=== PATIENT | female | born 1995 | race American Indian/Alaskan Native ===

== ENCOUNTER 2018-06-06 16:08 | Inpatient (IN) | payer OTHER ==
[2018-06-06 16:18] VITALS: BMI 35.5
[2018-06-06] MEDS ORDERED: Sodium Chloride 0.9% 1,000 ML IV STA (16:36)
--- NOTE | 2018-06-06 18:06 | US ---
Date of service: 06/06/2018 PROCEDURE: Ultrasound of the Kidneys HISTORY: b/l flank pain h/o renal stone COMPARISON: None available. TECHNIQUE: Sonogram of the kidneys. FINDINGS: RIGHT KIDNEY: Measures: 10.4 x 4.5 x 6.0 cm. No obstructing calculus, hydronephrosis, or renal cyst identified. LEFT KIDNEY: Measures: 11.2 x 5.1 x 5.4 cm. No obstructing calculus, hydronephrosis, or renal cyst identified. OTHER FINDINGS: None. IMPRESSION: Unremarkable renal sonogram.
--- NOTE | 2018-06-06 18:15 | US ---
Date of service: 06/06/2018 Indication: /abdominal pain Comparison: None available Technique: Transvaginal pelvic ultrasound. Findings: The uterus measures approximately 9.6 x 4.9 x 6.8 cm. Anteverted. Cervix length measures approximately 5.3 cm. There is a single intrauterine fetus present. 3 mm yolk sac. The gestational sac measures 2.8 cm and is compatible with a gestational age of 7 weeks 5 days. The crown-rump length measures 1.2 cm and is compatible with a gestational age of 7 weeks 3 days. There is heart motion which measured 153 BPM. The right ovary measures 3.6 x 2.4 x 3.1 and contains 2.1 x 1.6 x 1.7 cm cyst. The left ovary is not visualized. Small pelvic free fluid. Impression: Live single intrauterine with estimated gestational age 7 weeks 3 days by crown-rump length calculation. heart rate 153 bpm. Advise an anomaly screen at 16-18 weeks gestational age 2.1 cm right ovarian cyst. The left ovary is not visualized. Small pelvic free fluid.
[2018-06-06 18:36] LABS: BASO # 0.01 K/mm3 (0.0-2.0); BASO % 0.1 % (0.0-3.0); EOS % 0.3 % (1.5-5.0); GRAN # 9.14 (1.4-6.5); GRAN % 86.2 % (50.0-68.0); LYMPH % 9.2 % (22.0-35.0); MEAN CELL VOLUME 81.8 fl (80.0-105.0); MEAN CORPUSCULAR HGB CONC 33.1 g/dl (31.0-37.0); MEAN PLATELET VOLUME 10.4 fl (7.0-11.0); MONO # 0.4 (0.1-0.6); MONO % 4.2 % (1.0-6.0); RBC 4.44 10^6/uL (3.5-6.1); RED CELL DISTRIBUTION WIDTH 12.7 % (11.5-14.5); URINE BILIRUBIN SMALL (NEGATIVE); URINE BLOOD NEGATIVE (NEGATIVE); URINE GLUCOSE (UA) NEGATIVE (NEGATIVE); URINE LEUKOCYTE ESTERASE NEGATIVE Leu/uL (NEGATIVE); URINE PROTEIN NEGATIVE mg/dL (<30 mg/dL); URINE UROBILINOGEN 0.2 E.U./dL (<1 E.U./dL); WHITE BLOOD COUNT 10.6 10^3/uL (4.5-11.0)
--- NOTE | 2018-06-06 18:37 | ED PDOC ---
Arrival/HPI - General Historian: Patient - History of Present Illness Narrative History of Present Illness (Text): 06/06/18 18:32 22yo female with no significant pmhx bib EMS with complaint of epigastric abdominal pain that radiates to her back with associated nausea and vomiting since earlier today. Patient reports intermittent history of these symptoms now for a year. states she was told she have kidney stone. she notes that her LMP was in March and she is currently . States she have not seen OB,. she denies diarrhea, constipation, dysuria, hematuria, vaginal bleeding, chest pain, SOB, diaphoresis, fever, chills, sick contact, travel, any other complaint. <Mckenzie Jain A - Last Filed: 06/07/18 02:09> <Enoch King Y - Last Filed: 06/07/18 11:56> - General Chief Complaint: Back Pain Time Seen by Provider: 06/06/18 16:15 Past Medical History - Provider Review Nursing Documentation Reviewed: Yes - Infectious Disease Hx of Infectious Diseases: None - Psychiatric Hx Substance Use: No <Mckenzie Jain A - Last Filed: 06/07/18 02:09> Family/Social History - Physician Review Nursing Documentation Reviewed: Yes Family/Social History: Unknown Family HX Smoking Status: Light Smoker < 10 Cigarettes Daily Hx Alcohol Use: No Hx Substance Use: No <Mckenzie Jain A - Last Filed: 06/07/18 02:09> Allergies/Home Meds <Mckenzie Jain A - Last Filed: 06/07/18 02:09> <Enoch King Y - Last Filed: 06/07/18 11:56> Allergies/Adverse Reactions: Allergies No Known Allergies Allergy (Verified 06/06/18 16:32) Home Medications: Home Meds Medication Instructions Recorded Confirmed RX: No Known Home Med 06/06/18 06/06/18 Review of Systems - Physician Review All systems were reviewed & negative as marked: Yes - Review of Systems Constitutional: Normal Eyes: Normal ENT: Normal Respiratory: Normal Cardiovascular: Normal Gastrointestinal: Abdominal Pain, Nausea, Vomiting. absent: Constipation, Diarrhea, Hematochezia, Hematemesis Genitourinary Female: Normal Musculoskeletal: Normal Skin: Normal Neurological: Normal Endocrine: Normal Hemo/Lymphatic: Normal Psychiatric: Normal <Mckenzie Jain A - Last Filed: 06/07/18 02:09> Physical Exam Vital Signs Reviewed: Yes Vital Signs Temp Pulse Resp BP Pulse Ox 06/06/18 16:30 97.7 F 57 L 18 131/77 100 Temperature: Afebrile Blood Pressure: Normal Pulse: Regular Respiratory Rate: Normal Appearance: Positive for: Well-Appearing, Non-Toxic, Comfortable Pain Distress: None Mental Status: Positive for: Alert and Oriented X 3 - Systems Exam Head: Present: Atraumatic, Normocephalic Pupils: Present: PERRL Extroacular Muscles: Present: EOMI Conjunctiva: Present: Normal Mouth: Present: Moist Mucous Membranes Neck: Present: Normal Range of Motion Respiratory/Chest: Present: Clear to Auscultation, Good Air Exchange. No: Respiratory Distress, Accessory Muscle Use Cardiovascular: Present: Regular Rate and Rhythm, Normal S1, S2. No: Murmurs Abdomen: Present: Tenderness (Epigastric tenderness), Normal Bowel Sounds. No: Distention, Peritoneal Signs, Rebound, Guarding, McBurney's Point Tender, Rovsing's Sign Present Back: Present: Normal Inspection Upper Extremity: Present: Normal Inspection. No: Cyanosis, Edema Lower Extremity: Present: Normal Inspection. No: Edema Neurological: Present: GCS=15, CN II-XII Intact, Speech Normal Skin: Present: Warm, Dry, Normal Color. No: Rashes Psychiatric: Present: Alert, Oriented x 3, Normal Insight, Normal Concentration <Diru,Happiness A - Last Filed: 06/07/18 02:09> Vital Signs Temp Pulse Resp BP Pulse Ox 06/07/18 00:52 62 18 124/69 99 06/06/18 16:30 97.7 F 57 L 18 131/77 100 <Enoch King Y - Last Filed: 06/07/18 11:56> Medical Decision Making ED Course and Treatment: 06/06/18 18:32 PT in ED for epigastric abdominal cohen that radiates to her back Labs Transvaginal/renal/Gallbladder US Ua 1L NS, Reglan,Tylenol Lab was [place]. [place] [address].00 was noted. Elevated LFT's was also noted Impression: Live single intrauterine with estimated gestational age 7 weeks 3 days by crown-rump length calculation. heart rate 153 bpm. Advise an anomaly screen at 16-18 weeks gestational age 2.1 cm right ovarian cyst. The left ovary is not visualized. Small pelvic free fluid. 06/06/18 22:14 US Gallbladder and Pancreas: Liver Measures 13.7 x 9.02 cm. Increased echogenicity of the liver parenchyma. No mass. No intrahepatic bile duct dilatation. Gallbladder Gallstones. Gallbladder wall thickness measures 0.25 cm. Common bile duct Measures 6.6 mm. No stones. No dilatation. Pancreas Not visualized. Right kidney Measures 9.4 x 5.08 x 5.12 cm in length. Normal echogenicity. No calculus, mass, or hydronephrosis. Aorta No aneurysmal dilatation. IVC Unremarkable. Other Findings None. Impression 1. Fatty liver. 2. Cholelithiasis. Electronically signed on Jun 06, 2018 9:40:33 PM EST by: Darrian Robbins M.D., EFREN Certified By [facility] Fellowship Trained MRI and CT Specialist Pt will be admitted for acute pancreatitis/cholelithiasis Result and plan was DW the pt and she agreed Case was DW Dr. Garcia and he accepted the pt for admission. - RAD Interpretation Radiology Orders: 06/06/18 16:37 OB TRANSVAGINAL [US] Stat RENAL [US] Stat - Medication Orders Current Medication Orders: Discontinued Medications Famotidine (Pepcid) 20 mg IVP STAT STA Stop: 06/06/18 16:37 Last Admin: 06/06/18 18:24 Dose: 20 mg IVP Administration Document 06/06/18 18:24 OCS (Rec: 06/06/18 18:24 [facility] Charges for Administration # of IVP Administrations 1 Sodium Chloride (Sodium Chloride 0.9%) 1,000 mls @ 1,000 mls/hr IV .Q1H STA Stop: 06/06/18 17:35 Last Admin: 06/06/18 18:24 Dose: 1,000 mls/hr eMAR Start Stop Document 06/06/18 18:24 OCS (Rec: 06/06/18 18:24 [facility] [place] Intravenous Solution Start Date 06/06/18 Start Time 18:24 End Date 06/06/18 End time 19:24 Total Infusion Time 60 Metoclopramide HCl (Reglan) 10 mg IVP STAT STA Stop: 06/06/18 16:37 Last Admin: 06/06/18 18:24 Dose: 10 mg IVP Administration Document 06/06/18 18:24 OCS (Rec: 06/06/18 18:24 [facility] [id number] Charges for Administration # of IVP Administrations 1 <Mckenzie Jain - Last Filed: 06/07/18 02:09> - Lab Interpretations Lab Results: 06/06/18 18:00 06/06/18 18:00 Lab Results 06/06/18 19:00: PT 12.1, INR 1.06, APTT 23.5 L 06/06/18 18:00: Sodium 135, Potassium 4.0, Chloride 105, Carbon Dioxide 20 L, Anion Gap 14, BUN 6 L, Creatinine 0.5 L, Est GFR ( Amer) > 60, Est GFR (Non-Af Amer) > 60, Random Glucose 149 H, Calcium 9.8, Magnesium 1.9, Total Bilirubin 1.9 H, AST 674 H, ALT 363 H, Alkaline Phosphatase 170 H, Total Protein 8.1, Albumin 4.6, Globulin 3.5, Albumin/Globulin Ratio 1.3, Lipase 00670 H 06/06/18 18:00: WBC 10.6, RBC 4.44, Hgb 12.0, Hct 36.3, MCV 81.8, MCH 27.0, MCHC 33.1, RDW 12.7, Plt Count 299, MPV 10.4, Gran % 86.2 H, Lymph % (Auto) 9.2 L, [place] % (Auto) 4.2, Eos % (Auto) 0.3 L, Baso % (Auto) 0.1, Gran # 9.14 H, Lymph # (Auto) 1.0 L, [place] # (Auto) 0.4, Eos # (Auto) 0.0, Baso # (Auto) 0.01 06/06/18 18:00: Urine Color Yellow, Urine Appearance Clear, Urine pH 6.0, Ur Specific [place] 1.015, Urine Protein Negative, Urine Glucose (UA) Negative, Urine Ketones Negative, Urine Blood Negative, Urine Nitrate Negative, Urine Bilirubin Small H, Urine Urobilinogen 0.2, Ur Leukocyte Esterase Negative - RAD Interpretation Radiology Orders: 06/06/18 16:37 OB TRANSVAGINAL [US] Stat RENAL [US] Stat 06/06/18 19:52 GALLBLADDER & PANCREAS [US] Stat - Medication Orders Current Medication Orders: Acetaminophen (Tylenol 325mg Tab) 650 mg PO Q6H PRN PRN Reason: Pain, moderate (4-7) Sodium Chloride (Sodium Chloride 0.9%) 1,000 mls @ 100 mls/hr IV .Q10H SAVANNA Last Admin: 06/06/18 21:25 Dose: 100 mls/hr eMAR Start Stop Document 06/06/18 21:25 AD (Rec: 06/06/18 21:25 AD [facility] [place]) Intravenous Solution Start Date 06/06/18 Start Time 21:25 Morphine Sulfate (Morphine) 2 mg IVP Q4H PRN PRN Reason: Pain, severe (8-10) Last Admin: 06/07/18 11:39 Dose: 2 mg MAR Pain Assessment Document 06/07/18 11:39 AJ (Rec: 06/07/18 11:39 AJ [id number]) Pain Reassessment Is this a pain reassessment? Yes Sleep Is patient sleeping during reassessment? No Presence of Pain Presence of Pain Yes Pain Scale Used Protocol: PSCALES Pain Scale Used Numeric Description Description Intermittent Intensity of Pain at present 8 IVP Administration Document 06/07/18 11:39 AJ (Rec: 06/07/18 11:39 AJ [id number]) Charges for Administration # of IVP Administrations 1 Discontinued Medications Acetaminophen (Tylenol 325mg Tab) 650 mg PO STAT STA Stop: 06/06/18 18:55 Last Admin: 06/06/18 20:19 Dose: 650 mg Famotidine (Pepcid) 20 mg IVP STAT STA Stop: 06/06/18 16:37 Last Admin: 06/06/18 18:24 Dose: 20 mg IVP Administration Document 06/06/18 18:24 OCS (Rec: 06/06/18 18:24 OCS [facility] [place]) Charges for Administration # of IVP Administrations 1 Sodium Chloride (Sodium Chloride 0.9%) 1,000 mls @ 1,000 mls/hr IV .Q1H STA Stop: 06/06/18 17:35 Last Admin: 06/06/18 18:24 Dose: 1,000 mls/hr eMAR Start Stop Document 06/06/18 18:24 OCS (Rec: 06/06/18 18:24 OCS [facility]-21) Intravenous Solution Start Date 06/06/18 Start Time 18:24 End Date 06/06/18 End time 19:24 Total Infusion Time 60 Metoclopramide HCl (Reglan) 10 mg IVP STAT STA Stop: 06/06/18 16:37 Last Admin: 06/06/18 18:24 Dose: 10 mg IVP Administration Document 06/06/18 18:24 OCS (Rec: 06/06/18 18:24 OCS [facility]-21) Charges for Administration # of IVP Administrations 1 Promethazine HCl (Phenergan Syrup) 12.5 mg PO Q4H PRN PRN Reason: Nausea/Vomiting Last Admin: 06/07/18 04:28 Dose: 12.5 mg <Enoch King - Last Filed: 06/07/18 11:56> Disposition/Present on Arrival - Present on Arrival Any Indicators Present on Arrival: No History of DVT/PE: No History of Uncontrolled Diabetes: No Urinary Catheter: No History of Decub. Ulcer: No History Surgical Site Infection Following: None - Disposition Have Diagnosis and Disposition been Completed?: Yes Disposition Time: 19:50 Patient Plan: Admission <Mckenzie Jain - Last Filed: 06/07/18 02:09> <Enoch King - Last Filed: 06/07/18 11:56> - Disposition Diagnosis: Acute pancreatitis, , Cholelithiasis, Elevated LFTs Disposition: HOSPITALIZED Patient Problems: Current Active Problems Problem Status Onset Acute pancreatitis Acute Cholelithiasis Acute Elevated LFTs Acute Acute Condition: FAIR
[2018-06-06 18:42] LABS: URINE APPEARANCE CLEAR (CLEAR); URINE COLOR YELLOW (YELLOW)
[2018-06-06 18:55] LABS: ALB/GLOB RATIO 1.3 (1.1-1.8); ALBUMIN 4.6 g/dL (3.0-4.8); BLOOD UREA NITROGEN 6 mg/dL (7-21); CALCIUM 9.8 mg/dL (8.4-10.5); GFR NON-AFRICAN AMERICAN > 60
[2018-06-06 19:22] LABS: ALT/SGPT 363 U/L (7-56); AST/SGOT 674 U/L (14-36); LIPASE 15549 U/L (23-300)
[2018-06-06 19:23] LABS: INR 1.06; PARTIAL THROMBOPLASTIN TIME 23.5 Seconds (25.1-36.5); PROTHROMBIN TIME 12.1 SECONDS (9.4-12.5)
[2018-06-06] MEDS: Sodium Chloride 0.9% 1,000 ML IV SCH (21:25)
--- NOTE | 2018-06-06 23:40 | CP.PCM.HP ---
<Justine Tam - Last Filed: 06/07/18 00:06> History of Present Illness - History of Present Illness History of Present Illness: Justine Tam, PGY1 Hospital H&P This is a 22 year old female with no PMH presenting to the hospital for one year of intermittent abdominal pain. Pain is located in the B/L lower abdominal area, radiates to the right flank area, rated 10/10 at worst, sharp and denies any relieving or exacerbating factors. She states she has been having increasing abdominal pain as well as nausea, several episodes of non bloody vomiting and subjective fever over the last few days which prompted her to come to the hospital. Last bowel movement was this morning. She denies any history of pancreatitis, gallbladder disease, GERD and kidney problems. She admits to drinking alcohol but is uncooperative upon further drinking history. She denies CP, SOB, headaches, chills, diarrhea, constipation, urinary complaints, numbness, tingling, swelling, recent travel, sickness, trauma and lifestyle changes including diet and weight gain/loss. 12 point ROS noted here, otherwise unremarkable. In ED, urine was positive and transvaginal US showed single intrauterine age 7 weeks with 2.1cm right ovarian cyst and small amount of pelvic free fluid. Patient states this is her fourth . She has one previous vaginal delivery and 2 previous abortions. PMD: Dr. Chan Meds: none PMH: denies SH: denies smoking drug use, smoked 2-5 ciggs/day for 5 years. Patient admits to drinking history but refuses to quantify amount Sx: denies surgeries FH: DM All: NKDA Present on Admission - Present on Admission Any Indicators Present on Admission: No Past Patient History - Infectious Disease Hx of Infectious Diseases: None - Past Social History Smoking Status: Light Smoker < 10 Cigarettes Daily - PSYCHIATRIC Hx Substance Use: No - SURGICAL HISTORY Hx Surgeries: No Meds Allergies/Adverse Reactions: Allergies Allergy/AdvReac Type Severity Reaction Status Date / Time No Known Allergies Allergy Verified 06/06/18 16:32 Physical Exam - Constitutional Appears: No Acute Distress - Head Exam Head Exam: ATRAUMATIC, NORMAL INSPECTION - Eye Exam Eye Exam: EOMI Pupil Exam: PERRL - ENT Exam ENT Exam: Mucous Membranes Moist - Neck Exam Neck exam: Positive for: Normal Inspection - Respiratory Exam Respiratory Exam: Clear to Auscultation Bilateral. absent: Accessory Muscle Use, Wheezes, Respiratory Distress - Cardiovascular Exam Cardiovascular Exam: REGULAR RHYTHM, +S1, +S2 - GI/Abdominal Exam GI & Abdominal Exam: Normal Bowel Sounds, Soft. absent: Firm, Guarding Additional comments: epigastric abdominal pain appreciated with light palpation. Rovsing and obturator signs are negative - Extremities Exam Extremities exam: Positive for: normal inspection, pedal pulses present. Negative for: calf tenderness - Back Exam Back exam: NORMAL INSPECTION. absent: CVA tenderness (L), CVA tenderness (R) - Neurological Exam Neurological exam: Alert, Oriented x3 - Skin Skin Exam: Normal Color, Warm Results - Vital Signs Recent Vital Signs: Last Vital Signs Temp 97.7 F 06/06/18 16:30 Pulse 57 L 06/06/18 16:30 Resp 18 06/06/18 16:30 BP 131/77 06/06/18 16:30 Pulse Ox 100 06/06/18 16:30 - Labs Result Diagrams: 06/06/18 18:00 06/06/18 18:00 Labs: Laboratory Results - last 24 hr 06/06/18 06/06/18 06/06/18 18:00 18:00 18:00 WBC 10.6 RBC 4.44 Hgb 12.0 Hct 36.3 MCV 81.8 MCH 27.0 MCHC 33.1 RDW 12.7 Plt Count 299 MPV 10.4 Gran % 86.2 H Lymph % (Auto) 9.2 L [place] % (Auto) 4.2 Eos % (Auto) 0.3 L Baso % (Auto) 0.1 Gran # 9.14 H Lymph # (Auto) 1.0 L [place] # (Auto) 0.4 Eos # (Auto) 0.0 Baso # (Auto) 0.01 PT INR APTT Sodium 135 Potassium 4.0 Chloride 105 Carbon Dioxide 20 L Anion Gap 14 BUN 6 L Creatinine 0.5 L Est GFR ( Amer) > 60 Est GFR (Non-Af Amer) > 60 Random Glucose 149 H Calcium 9.8 Magnesium 1.9 Total Bilirubin 1.9 H AST 674 H ALT 363 H Alkaline Phosphatase 170 H Total Protein 8.1 Albumin 4.6 Globulin 3.5 Albumin/Globulin Ratio 1.3 Lipase 49629 H Urine Color Yellow Urine Appearance Clear Urine pH 6.0 Ur Specific [place] 1.015 Urine Protein Negative Urine Glucose (UA) Negative Urine Ketones Negative Urine Blood Negative Urine Nitrate Negative Urine Bilirubin Small H Urine Urobilinogen 0.2 Ur Leukocyte Esterase Negative 06/06/18 19:00 WBC RBC Hgb Hct MCV MCH MCHC RDW Plt Count MPV Gran % Lymph % (Auto) [place] % (Auto) Eos % (Auto) Baso % (Auto) Gran # Lymph # (Auto) [place] # (Auto) Eos # (Auto) Baso # (Auto) PT 12.1 INR 1.06 APTT 23.5 L Sodium Potassium Chloride Carbon Dioxide Anion Gap BUN Creatinine Est GFR ( Amer) Est GFR (Non-Af Amer) Random Glucose Calcium Magnesium Total Bilirubin AST ALT Alkaline Phosphatase Total Protein Albumin Globulin Albumin/Globulin Ratio Lipase Urine Color Urine Appearance Urine pH Ur Specific [place] Urine Protein Urine Glucose (UA) Urine Ketones Urine Blood Urine Nitrate Urine Bilirubin Urine Urobilinogen Ur Leukocyte Esterase Assessment & Plan - Assessment and Plan (Free Text) Assessment: This is a 22 year old female with no PMH presenting to the hospital for one year of intermittent abdominal pain. Plan: Abdominal pain -likely 2/2 pancreatitis -lipase elevated 15k -afebrile, no WBC -elevated LFT's, T Bili, alk phos -promethazine 12.5mg q4 for nausea -NS 100 -liquid diet tomorrow -morphine 2mg q4 prn for pain -tylenol prn for fever -Gallbladder US pending -repeat lipase in AM -Transvaginal US showed single intrauterine age 7 weeks with 2.1cm right ovarian cyst and small amount of pelvic free fluid -Renal US was unremarkable -liquid diet for tomorrow -avoid toxic medications PPX with SCD Patient seen and case discussed with attending, Dr. Garcia <Rosana aGrcia - Last Filed: 06/07/18 06:47> Results - Vital Signs Recent Vital Signs: Last Vital Signs Temp 98.5 F 06/07/18 01:20 Pulse 62 06/07/18 01:20 Resp 18 06/07/18 05:22 BP 98/39 L 06/07/18 01:20 Pulse Ox 100 06/07/18 01:20 - Labs Result Diagrams: 06/06/18 18:00 06/06/18 18:00 Labs: Laboratory Results - last 24 hr 06/06/18 06/06/18 06/06/18 18:00 18:00 18:00 WBC 10.6 RBC 4.44 Hgb 12.0 Hct 36.3 MCV 81.8 MCH 27.0 MCHC 33.1 RDW 12.7 Plt Count 299 MPV 10.4 Gran % 86.2 H Lymph % (Auto) 9.2 L [place] % (Auto) 4.2 Eos % (Auto) 0.3 L Baso % (Auto) 0.1 Gran # 9.14 H Lymph # (Auto) 1.0 L [place] # (Auto) 0.4 Eos # (Auto) 0.0 Baso # (Auto) 0.01 PT INR APTT Sodium 135 Potassium 4.0 Chloride 105 Carbon Dioxide 20 L Anion Gap 14 BUN 6 L Creatinine 0.5 L Est GFR ( Amer) > 60 Est GFR (Non-Af Amer) > 60 Random Glucose 149 H Calcium 9.8 Magnesium 1.9 Total Bilirubin 1.9 H AST 674 H ALT 363 H Alkaline Phosphatase 170 H Total Protein 8.1 Albumin 4.6 Globulin 3.5 Albumin/Globulin Ratio 1.3 Lipase 98774 H Urine Color Yellow Urine Appearance Clear Urine pH 6.0 Ur Specific [place] 1.015 Urine Protein Negative Urine Glucose (UA) Negative Urine Ketones Negative Urine Blood Negative Urine Nitrate Negative Urine Bilirubin Small H Urine Urobilinogen 0.2 Ur Leukocyte Esterase Negative 06/06/18 19:00 WBC RBC Hgb Hct MCV MCH MCHC RDW Plt Count MPV Gran % Lymph % (Auto) [place] % (Auto) Eos % (Auto) Baso % (Auto) Gran # Lymph # (Auto) [place] # (Auto) Eos # (Auto) Baso # (Auto) PT 12.1 INR 1.06 APTT 23.5 L Sodium Potassium Chloride Carbon Dioxide Anion Gap BUN Creatinine Est GFR ( Amer) Est GFR (Non-Af Amer) Random Glucose Calcium Magnesium Total Bilirubin AST ALT Alkaline Phosphatase Total Protein Albumin Globulin Albumin/Globulin Ratio Lipase Urine Color Urine Appearance Urine pH Ur Specific [place] Urine Protein Urine Glucose (UA) Urine Ketones Urine Blood Urine Nitrate Urine Bilirubin Urine Urobilinogen Ur Leukocyte Esterase Attending/Attestation - Attestation I have personally seen and examined this patient.: Yes I have fully participated in the care of the patient.: Yes I have reviewed all pertinent clinical information: Yes
[2018-06-06] MEDS ORDERED: Sodium Chloride 0.9% 1,000 ML IV SCH (23:45)
[2018-06-06] MEDS ORDERED: Promethazine 6.25 MG/5 ML CUP PO PRN (23:50)
[2018-06-07] MEDS: Morphine 2 mg/ml ISec IVP PRN ×5 (00:28→21:18)
[2018-06-07 07:15] LABS: BASO # 0.01 K/mm3 (0.0-2.0); BASO % 0.1 % (0.0-3.0); EOS % 0.1 % (1.5-5.0); GRAN # 10.3 (1.4-6.5); GRAN % 83.5 % (50.0-68.0); HEMOGLOBIN 10.3 g/dL (12.0-16.0); LYMPH # 1.4 (1.2-3.4); MEAN CELL VOLUME 80.8 fl (80.0-105.0); MEAN CORPUSCULAR HEMOGLOBIN 25.8 pg (25.0-35.0); MEAN CORPUSCULAR HGB CONC 31.9 g/dl (31.0-37.0); MEAN PLATELET VOLUME 10.3 fl (7.0-11.0); MONO # 0.7 (0.1-0.6); MONO % 5.3 % (1.0-6.0); RED CELL DISTRIBUTION WIDTH 12.8 % (11.5-14.5); WHITE BLOOD COUNT 12.3 10^3/uL (4.5-11.0)
[2018-06-07 07:39] LABS: ALB/GLOB RATIO 1.2 (1.1-1.8); ALBUMIN 3.8 g/dL (3.0-4.8); ALT/SGPT 256 U/L (7-56); AST/SGOT 207 U/L (14-36); BLOOD UREA NITROGEN 6 mg/dL (7-21); CALCIUM 8.8 mg/dL (8.4-10.5); GFR NON-AFRICAN AMERICAN > 60
[2018-06-07 08:21] LABS: HDL CHOLESTEROL 60 mg/dL (29-60)
[2018-06-07 08:32] LABS: LDL CHOLESTEROL 76 mg/dL (0-129)
--- NOTE | 2018-06-07 10:41 | US ---
Date of service: 06/06/2018 HISTORY: RUQ pain COMPARISON: None. TECHNIQUE: Grayscale imaging was performed. FINDINGS: LIVER: Measures 13.7 cm in length. There is diffuse increased echogenicity of the liver parenchyma with coarse echotexture. No mass. No intrahepatic bile duct dilatation. GALLBLADDER: There are multiple gallstones and echogenic biliary sludge. No wall thickening, pericholecystic fluid or positive sonographic Boudreaux's sign. COMMON BILE DUCT: Measures 6.6 mm. No stones. No dilatation. PANCREAS: Obscured by bowel gas. RIGHT KIDNEY: Measures 9.4 cm in length. Normal echogenicity. No calculus, mass, or hydronephrosis. AORTA: No aneurysmal dilatation. IVC: Unremarkable. OTHER FINDINGS: None . IMPRESSION: Diffuse increased echogenicity in the liver may reflect hepatic steatosis however parenchymal infectious/ inflammatory etiologies cannot be entirely excluded. Clinical and laboratory correlation is advised. Cholelithiasis. A preliminary report was provided by [employer].
[2018-06-07 16:35] LABS: BARBITURATES, UR NEGATIVE (NEGATIVE); BENZODIAZEPINES, UR NEGATIVE (NEGATIVE); OPIATES, UR POSITIVE (NEGATIVE); PHENCYCLIDINE, UR NEGATIVE (NEGATIVE)
[2018-06-07 22:09] VITALS: RESP 20
[2018-06-08] MEDS: Morphine 2 mg/ml ISec IVP PRN (05:08)
[2018-06-08] MEDS: Sodium Chloride 0.9% 1,000 ML IV SCH (05:10)
[2018-06-08 06:57] LABS: BASO # 0.02 K/mm3 (0.0-2.0); BASO % 0.3 % (0.0-3.0); EOS # 0.3 (0.0-0.7); EOS % 3.6 % (1.5-5.0); GRAN # 4.07 (1.4-6.5); GRAN % 55.7 % (50.0-68.0); LYMPH # 2.2 (1.2-3.4); LYMPH % 30.4 % (22.0-35.0); MEAN CELL VOLUME 82.5 fl (80.0-105.0); MEAN CORPUSCULAR HEMOGLOBIN 26.2 pg (25.0-35.0); MEAN CORPUSCULAR HGB CONC 31.7 g/dl (31.0-37.0); MEAN PLATELET VOLUME 10.3 fl (7.0-11.0); MONO # 0.7 (0.1-0.6); RBC 3.82 10^6/uL (3.5-6.1); WHITE BLOOD COUNT 7.3 10^3/uL (4.5-11.0)
[2018-06-08 07:23] LABS: ALB/GLOB RATIO 1.3 (1.1-1.8); ALBUMIN 3.5 g/dL (3.0-4.8); ALT/SGPT 149 U/L (7-56); AST/SGOT 65 U/L (14-36); BLOOD UREA NITROGEN 5 mg/dL (7-21); CALCIUM 8.7 mg/dL (8.4-10.5); GFR NON-AFRICAN AMERICAN > 60; LIPASE 151 U/L (23-300)
[2018-06-08] MEDS ORDERED: Multivitamin With Minerals Tab PO SCH (08:00)
[2018-06-08 08:10] VITALS: TEMP 98.7; O2SAT 97
[2018-06-08 11:08] VITALS: BP 102/60; PULSE 58
--- NOTE | 2018-06-08 14:44 | CP.PCM.DIS ---
Provider - Provider Date of Admission: 06/06/18 19:54 Attending physician: Tulio Fajardo MD Primary care physician: Evan Pandya MD Consults: 06/08/18 07:30 Consult [Physician Consult] Routine Comment: Consulting Provider: Mil Crowell V Consulting Physician: Mil Crowell V Reason for Consult: pancreatitis, Time Spent in preparation of Discharge (in minutes): 45 Hospital Course - Lab Results Lab Results: Most Recent Lab Values WBC 7.3 10^3/uL (4.5-11.0) D 06/08/18 06:20 RBC 3.82 10^6/uL (3.5-6.1) 06/08/18 06:20 Hgb 10.0 g/dL (12.0-16.0) L 06/08/18 06:20 Hct 31.5 % (36.0-48.0) L 06/08/18 06:20 MCV 82.5 fl (80.0-105.0) 06/08/18 06:20 MCH 26.2 pg (25.0-35.0) 06/08/18 06:20 MCHC 31.7 g/dl (31.0-37.0) 06/08/18 06:20 RDW 13.0 % (11.5-14.5) 06/08/18 06:20 Plt Count 267 10^3/uL (120.0-450.0) 06/08/18 06:20 MPV 10.3 fl (7.0-11.0) 06/08/18 06:20 Gran % 55.7 % (50.0-68.0) 06/08/18 06:20 Lymph % (Auto) 30.4 % (22.0-35.0) 06/08/18 06:20 [place] % (Auto) 10.0 % (1.0-6.0) H 06/08/18 06:20 Eos % (Auto) 3.6 % (1.5-5.0) 06/08/18 06:20 Baso % (Auto) 0.3 % (0.0-3.0) 06/08/18 06:20 Gran # 4.07 (1.4-6.5) 06/08/18 06:20 Lymph # (Auto) 2.2 (1.2-3.4) 06/08/18 06:20 [place] # (Auto) 0.7 (0.1-0.6) H 06/08/18 06:20 Eos # (Auto) 0.3 (0.0-0.7) 06/08/18 06:20 Baso # (Auto) 0.02 K/mm3 (0.0-2.0) 06/08/18 06:20 PT 12.1 SECONDS (9.4-12.5) 06/06/18 19:00 INR 1.06 06/06/18 19:00 APTT 23.5 Seconds (25.1-36.5) L 06/06/18 19:00 Sodium 136 mmol/L (132-148) 06/08/18 06:20 Potassium 3.8 mmol/L (3.6-5.0) 06/08/18 06:20 Chloride 105 mmol/L (98-107) 06/08/18 06:20 Carbon Dioxide 26 mmol/L (21-33) 06/08/18 06:20 Anion Gap 9 (10-20) L 06/08/18 06:20 BUN 5 mg/dL (7-21) L 06/08/18 06:20 Creatinine 0.6 mg/dl (0.7-1.2) L 06/08/18 06:20 Est GFR ( Amer) > 60 06/08/18 06:20 Est GFR (Non-Af Amer) > 60 06/08/18 06:20 Random Glucose 88 mg/dL (70-110) 06/08/18 06:20 Calcium 8.7 mg/dL (8.4-10.5) 06/08/18 06:20 Phosphorus 3.9 mg/dL (2.5-4.5) 06/07/18 06:45 Magnesium 1.8 mg/dL (1.7-2.2) 06/07/18 06:45 Total Bilirubin 0.3 mg/dL (0.2-1.3) 06/08/18 06:20 AST 65 U/L (14-36) H D 06/08/18 06:20 ALT 149 U/L (7-56) H 06/08/18 06:20 Alkaline Phosphatase 101 U/L (38-126) 06/08/18 06:20 Total Protein 6.3 g/dL (5.8-8.3) 06/08/18 06:20 Albumin 3.5 g/dL (3.0-4.8) 06/08/18 06:20 Globulin 2.8 gm/dL 06/08/18 06:20 Albumin/Globulin Ratio 1.3 (1.1-1.8) 06/08/18 06:20 Triglycerides 72 mg/dL (35-160) 06/07/18 06:30 Cholesterol 152 mg/dL (130-200) 06/07/18 06:30 LDL Cholesterol Direct 76 mg/dL (0-129) 06/07/18 06:30 HDL Cholesterol 60 mg/dL (29-60) 06/07/18 06:30 Lipase 151 U/L (23-300) 06/08/18 06:20 Urine Color Yellow (YELLOW) 06/06/18 18:00 Urine Appearance Clear (CLEAR) 06/06/18 18:00 Urine pH 6.0 (4.7-8.0) 06/06/18 18:00 Ur Specific [place] 1.015 (1.005-1.035) 06/06/18 18:00 Urine Protein Negative mg/dL (<30 mg/dL) 06/06/18 18:00 Urine Glucose (UA) Negative mg/dL (NEGATIVE) 06/06/18 18:00 Urine Ketones Negative mg/dL (NEGATIVE) 06/06/18 18:00 Urine Blood Negative (NEGATIVE) 06/06/18 18:00 Urine Nitrate Negative (NEGATIVE) 06/06/18 18:00 Urine Bilirubin Small (NEGATIVE) H 06/06/18 18:00 Urine Urobilinogen 0.2 E.U./dL (<1 E.U./dL) 06/06/18 18:00 Ur Leukocyte Esterase Negative [place]/uL (NEGATIVE) 06/06/18 18:00 Urine Opiates Screen Positive (NEGATIVE) H 06/07/18 16:01 Urine Methadone Screen Negative (NEGATIVE) 06/07/18 16:01 Ur Barbiturates Screen Negative (NEGATIVE) 06/07/18 16:01 Ur Phencyclidine Scrn Negative (NEGATIVE) 06/07/18 16:01 Ur Amphetamines Screen Negative (NEGATIVE) 06/07/18 16:01 U Benzodiazepines Scrn Negative (NEGATIVE) 06/07/18 16:01 U Oth Cocaine Metabols Negative (NEGATIVE) 06/07/18 16:01 U Cannabinoids Screen Positive (NEGATIVE) H 06/07/18 16:01 Alcohol, Quantitative < 10 mg/dL (0-10) 06/07/18 06:30 Discharge Exam - Head Exam Head Exam: ATRAUMATIC, NORMAL INSPECTION Discharge Plan - Discharge Medications Prescriptions: Famotidine [Pepcid] 40 mg PO DAILY 30 Days #30 tablet Vit No.126/Iron/Folic [Classic Tablet] 1 each PO DAILY #30 tablet - Follow Up Plan Condition: FAIR Disposition: HOME/ ROUTINE Instructions: Pancreatitis (DC), Gallstones (DC), Flu Vaccine Additional Instructions: Please follow up with primary medical doctor in 3-5 days for repeat blood work. 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 Please avoid fatty foods and please refrain from alcohol and drug use. If your symptoms worsen, please go to the nearest emergency department. Referrals: Evan Pandya MD [Primary Care Provider] -
--- NOTE | 2018-06-08 15:10 | CP.PCM.CON ---
<Wu Simon - Last Filed: 06/08/18 15:10> History of Present Illness - History of Present Illness History of Present Illness: PGY6 GI Fellow Consult Note - LATE ENTRY Patient is a 22yo female with PMHx significant for current intrauterine (~7 weeks) who presented to the ED with abdominal pain. States pain began suddenly, waking her from sleep last night and was 10/10 sharp, stabbing in nature. Though pain began in the lower abdomen, it soon moved to the RUQ and epigastric area where it has remained. She developed nausea, vomiting and decided to come to the ED for further evaluation. Patient is aware of intrauterine but admits to EtOH use up to two weeks prior to admission. Vehemently denies any EtOH just prior to arrival. Denies any prior episodes of pancreatitis. At this time, patient is comfortable and has eaten breakfast without issue. 12 system ROS performed and negative except where stated PMHx: None PSHx: Denies FHx: Denies Social: Denies tobacco or illicit drug use; EtOH use 2 weeks ago Endo: No prior endoscopic evaluations Past Patient History - Infectious Disease Hx of Infectious Diseases: None - Past Social History Smoking Status: Light Smoker < 10 Cigarettes Daily - MUSCULOSKELETAL/RHEUMATOLOGICAL Hx Falls: No - PSYCHIATRIC Hx Substance Use: No - SURGICAL HISTORY Hx Surgeries: No Meds Home Medications: Home Medication List Medication Instructions Recorded Confirmed Type Famotidine [Pepcid] 40 mg PO DAILY 30 Days #30 tablet 06/08/18 Rx Vit No.126/Iron/Folic 1 each PO DAILY #30 tablet 06/08/18 Rx [Classic Tablet] Allergies/Adverse Reactions: Allergies Allergy/AdvReac Type Severity Reaction Status Date / Time No Known Allergies Allergy Verified 06/08/18 08:23 Physical Exam - Constitutional Appears: Non-toxic, No Acute Distress - Eye Exam Eye Exam: EOMI, PERRL - ENT Exam ENT Exam: Mucous Membranes Moist - Respiratory Exam Respiratory Exam: Clear to Auscultation Bilateral. absent: Rales, Rhonchi, Wheezes - Cardiovascular Exam Cardiovascular Exam: RRR, +S1, +S2 - GI/Abdominal Exam GI & Abdominal Exam: Normal Bowel Sounds, Soft. absent: Distended, Firm, Guarding, Hernia, Organomegaly, Rigid, Tenderness - Extremities Exam Extremities exam: Positive for: normal inspection. Negative for: pedal edema - Neurological Exam Neurological exam: Alert, Oriented x3 - Psychiatric Exam Psychiatric exam: Normal Affect, Normal Mood - Skin Skin Exam: Dry, Warm Results - Vital Signs Recent Vital Signs: Last Vital Signs Temp 98.7 F 06/08/18 06:00 Pulse 58 L 06/08/18 09:00 Resp 20 06/08/18 06:00 BP 102/60 06/08/18 09:00 Pulse Ox 97 06/08/18 06:00 - Labs Result Diagrams: 06/08/18 06:20 06/08/18 06:20 Labs: Laboratory Results - last 24 hr 06/07/18 06/08/18 06/08/18 16:01 06:20 06:20 WBC 7.3 D RBC 3.82 Hgb 10.0 L Hct 31.5 L MCV 82.5 MCH 26.2 MCHC 31.7 RDW 13.0 Plt Count 267 MPV 10.3 Gran % 55.7 Lymph % (Auto) 30.4 [place] % (Auto) 10.0 H Eos % (Auto) 3.6 Baso % (Auto) 0.3 Gran # 4.07 Lymph # (Auto) 2.2 [place] # (Auto) 0.7 H Eos # (Auto) 0.3 Baso # (Auto) 0.02 Sodium 136 Potassium 3.8 Chloride 105 Carbon Dioxide 26 Anion Gap 9 L BUN 5 L Creatinine 0.6 L Est GFR ( Amer) > 60 Est GFR (Non-Af Amer) > 60 Random Glucose 88 Calcium 8.7 Total Bilirubin 0.3 AST 65 H D ALT 149 H Alkaline Phosphatase 101 Total Protein 6.3 Albumin 3.5 Globulin 2.8 Albumin/Globulin Ratio 1.3 Lipase 151 Urine Opiates Screen Positive H Urine Methadone Screen Negative Ur Barbiturates Screen Negative Ur Phencyclidine Scrn Negative Ur Amphetamines Screen Negative U Benzodiazepines Scrn Negative U Oth Cocaine Metabols Negative U Cannabinoids Screen Positive H Assessment & Plan - Assessment and Plan (Free Text) Assessment: Patient is a 22yo female with PMHx significant for current intrauterine (~7 weeks) who presented to the ED with abdominal pain. -Abdominal pain R/O acute gallstone pancreatitis vs biliary colic -Abnormal LFTs - mixed picture -Cholelithiasis -Intrauterine Plan: -Patient noted to have gallstones on U/S -Gallstone pancreatitis is high on differential given mixed LFT abnormality and high lipase with typical pancreatitis pain -Symptoms have resolved and patient tolerating full diet this morning without issue -Patient offered MRCP to further evaluate biliary tree for obstruction but is refusing exam at this time -Patient to follow up with OBGYN as outpatient -Recommend consideration for elective cholecystectomy in the period -EtOH cessation encouraged and risks during stressed - Date & Time Date: 06/08/18 Time: 09:00 <Mil Crowell V - Last Filed: 06/09/18 00:24> Results - Vital Signs Recent Vital Signs: Last Vital Signs Temp 98.7 F 06/08/18 06:00 Pulse 58 L 06/08/18 09:00 Resp 20 06/08/18 06:00 BP 102/60 06/08/18 09:00 Pulse Ox 97 06/08/18 06:00 - Labs Result Diagrams: 06/08/18 06:20 06/08/18 06:20 Labs: Laboratory Results - last 24 hr 06/08/18 06/08/18 06/08/18 06:20 06:20 07:00 WBC 7.3 D RBC 3.82 Hgb 10.0 L Hct 31.5 L MCV 82.5 MCH 26.2 MCHC 31.7 RDW 13.0 Plt Count 267 MPV 10.3 Gran % 55.7 Lymph % (Auto) 30.4 [place] % (Auto) 10.0 H Eos % (Auto) 3.6 Baso % (Auto) 0.3 Gran # 4.07 Lymph # (Auto) 2.2 [place] # (Auto) 0.7 H Eos # (Auto) 0.3 Baso # (Auto) 0.02 Sodium 136 Potassium 3.8 Chloride 105 Carbon Dioxide 26 Anion Gap 9 L BUN 5 L Creatinine 0.6 L Est GFR ( Amer) > 60 Est GFR (Non-Af Amer) > 60 Random Glucose 88 Calcium 8.7 Total Bilirubin 0.3 AST 65 H D ALT 149 H Alkaline Phosphatase 101 Total Protein 6.3 Albumin 3.5 Globulin 2.8 Albumin/Globulin Ratio 1.3 Lipase 151 Hepatitis A IgM Ab Negative Hep Bs Antigen Negative Hep B Core IgM Ab Negative Hepatitis C Antibody Negative Attending/Attestation - Attestation I have personally seen and examined this patient.: Yes I have fully participated in the care of the patient.: Yes I have reviewed all pertinent clinical information: No Notes (Text): This is an addendum to GI progress report dictated by the GI Fellow. The patient was seen and examined earlier. Medical records, lab studies, imagings were rev iewed. Last 24 hours events reviewed. Agreed with the above treatment plan as outlined in GI Fellow 's notes with the addition of the following 06/09/18 00:17
[2018-06-08 15:32] LABS: HEPATITIS A IGM NEGATIVE (NEGATIVE); HEPATITIS B CORE AB NEGATIVE (NEGATIVE); HEPATITIS B SURFACE AG Negative (NEGATIVE); HEPATITIS C ANTIBODY NEGATIVE (NEGATIVE)
== END 2018-06-08 12:51 | disposition home or self-care (01) | DRG 886 ==
LOC: ED 16:08 → ERH 19:54 → 5RNO 06-07 01:28
PROVIDERS: ADMIT Internal Medicine; ATTEND Internal Medicine
DX: O26.611 Liver and biliary tract disorders in pregnancy, first trimester (principal); K85.90 Acute pancreatitis without necrosis or infection, unspecified; K80.20 Calculus of gallbladder without cholecystitis without obstruction; O26.831 Pregnancy related renal disease, first trimester; O34.81 Maternal care for other abnormalities of pelvic organs, first trimester; N83.201 Unspecified ovarian cyst, right side; R79.89 Other specified abnormal findings of blood chemistry; K76.0 Fatty (change of) liver, not elsewhere classified; N20.0 Calculus of kidney; Z83.3 Family history of diabetes mellitus; F17.210 Nicotine dependence, cigarettes, uncomplicated; F10.11 Alcohol abuse, in remission; Z3A.01 Less than 8 weeks gestation of pregnancy

== ENCOUNTER 2018-07-19 12:05 | Inpatient (IN) | payer OTHER ==
[2018-07-19] MEDS ORDERED: Sodium Chloride 0.9% 1,000 ML IV STA (13:27)
[2018-07-19 13:47] LABS: BASO # 0.02 K/mm3 (0.0-2.0); BASO % 0.2 % (0.0-3.0); EOS # 0.1 (0.0-0.7); EOS % 0.5 % (1.5-5.0); GRAN # 9.62 (1.4-6.5); GRAN % 84.8 % (50.0-68.0); HEMOGLOBIN 12.7 g/dL (12.0-16.0); LYMPH # 0.9 (1.2-3.4); LYMPH % 7.6 % (22.0-35.0); MEAN CORPUSCULAR HEMOGLOBIN 27.1 pg (25.0-35.0); MEAN CORPUSCULAR HGB CONC 32.3 g/dl (31.0-37.0); MEAN PLATELET VOLUME 10.9 fl (7.0-11.0); MONO # 0.8 (0.1-0.6); MONO % 6.9 % (1.0-6.0); RBC 4.68 10^6/uL (3.5-6.1); RED CELL DISTRIBUTION WIDTH 12.8 % (11.5-14.5); WHITE BLOOD COUNT 11.3 10^3/uL (4.5-11.0)
[2018-07-19 13:48] LABS: URINE BILIRUBIN LARGE (NEGATIVE); URINE BLOOD NEGATIVE (NEGATIVE); URINE GLUCOSE (UA) NEGATIVE (NEGATIVE); URINE LEUKOCYTE ESTERASE NEGATIVE Leu/uL (NEGATIVE); URINE PROTEIN NEGATIVE mg/dL (<30 mg/dL); URINE UROBILINOGEN 0.2 E.U./dL (<1 E.U./dL)
[2018-07-19 13:54] LABS: INR 1.03; PARTIAL THROMBOPLASTIN TIME 37.7 Seconds (26.9-38.3); PROTHROMBIN TIME 11.6 SECONDS (9.4-12.5); URINE APPEARANCE CLEAR (CLEAR); URINE COLOR YELLOW (YELLOW)
[2018-07-19 14:05] LABS: ALB/GLOB RATIO 1.3 (1.1-1.8); ALBUMIN 4.9 g/dL (3.0-4.8); ALT/SGPT 526 U/L (7-56); AST/SGOT 447 U/L (14-36); BLOOD UREA NITROGEN 9 mg/dL (7-21); GFR NON-AFRICAN AMERICAN > 60
[2018-07-19] MEDS ORDERED: Morphine 2 mg/ml ISec IVP STA (14:12)
--- NOTE | 2018-07-19 14:31 | US ---
Date of service: 07/19/2018 HISTORY: RUQ pain COMPARISON: None. TECHNIQUE: Sonographic evaluation of the right upper quadrant of the abdomen. FINDINGS: LIVER: Measures 13.8 x 11.7 cm in length. Increased echogenicity of the liver parenchyma. No mass. No intrahepatic bile duct dilatation. GALLBLADDER: Multiple gallstones COMMON BILE DUCT: Measures 5 mm. No stones. No dilatation. PANCREAS: Unremarkable as visualized. No mass. No ductal dilatation. RIGHT KIDNEY: Measures 10.16 x 4.56 x 5.63 cm in length. Normal echogenicity. No calculus, mass, or hydronephrosis. AORTA: No aneurysmal dilatation. IVC: Unremarkable. OTHER FINDINGS: None . IMPRESSION: Multiple gallstones.
--- NOTE | 2018-07-19 14:44 | ED PDOC ---
Arrival/HPI - General Chief Complaint: Abdominal Pain Time Seen by Provider: 07/19/18 13:00 Historian: Patient - History of Present Illness Narrative History of Present Illness (Text): 07/19/18 15:15 22 y/o female with PMH of pancreatitis presents to ED c/o RUQ pain x 1 day. Pt had acute onset of RUQ pain this morning that she states is typical of her gallstone pain, but worse. 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 Currently menstruating. Of note, pt seen for similar symptoms approx. 1.5 months ago and admitted for gallstone pancreatitis that was managed non-surgically [patient was ] and pt was discharged home. Pt has since had a surgical without complication. Admits to drinking alcohol approx 1 week ago, denies drug use. Denies fever, chills, chest pain, SOB, cough, back pain, neck pain, headache, dizziness, diarrhea, or any other associated complaints. Past Medical History - Provider Review Nursing Documentation Reviewed: Yes - Infectious Disease Hx of Infectious Diseases: None - Reproductive Menopause: No - Cardiac Hx Cardiac Disorders: No - Musculoskeletal/Rheumatological Hx Falls: No - Gastrointestinal Other/Comment: gall bladder problem - Genitourinary/Gynecological Hx Genitourinary Disorders: No - Psychiatric Hx Substance Use: No - Anesthesia Hx Anesthesia Reactions: No Family/Social History - Physician Review Nursing Documentation Reviewed: Yes Family/Social History: No Known Family HX Smoking Status: Light Smoker < 10 Cigarettes Daily Hx Alcohol Use: No (socially) Hx Substance Use: No Allergies/Home Meds Allergies/Adverse Reactions: Allergies No Known Allergies Allergy (Verified 06/08/18 08:23) Home Medications: Home Meds Medication Instructions Recorded Confirmed No Known Home Med 07/19/18 07/19/18 Review of Systems - Physician Review All systems were reviewed & negative as marked: Yes - Review of Systems Constitutional: Normal. absent: Fevers Eyes: Normal. absent: Vision Changes ENT: Normal. absent: Sore Throat, Sinus Congestion Respiratory: Normal. absent: SOB, Cough Cardiovascular: Normal. absent: Chest Pain, Palpitations Gastrointestinal: Abdominal Pain, Nausea, Vomiting, Appetite Changes, Food Intolerance. absent: Stool Changes Genitourinary Female: Normal, Vaginal Bleeding (menstruating). absent: Dysuria, Frequency, Vaginal Discharge Musculoskeletal: Normal. absent: Arthralgias, Back Pain, Neck Pain Skin: Normal. absent: Rash Neurological: Normal. absent: Headache, Dizziness, Focal Weakness Endocrine: Normal Hemo/Lymphatic: Normal Psychiatric: Normal Physical Exam Vital Signs Reviewed: Yes Vital Signs Temp Pulse Resp BP Pulse Ox 07/19/18 14:35 52 L 18 131/74 100 07/19/18 12:23 98.5 F 74 18 150/87 98 Temperature: Afebrile Blood Pressure: Normal Pulse: Regular Respiratory Rate: Normal Appearance: Positive for: Well-Appearing, Non-Toxic, Uncomfortable (doubled over in pain) Pain Distress: None Mental Status: Positive for: Alert and Oriented X 3 - Systems Exam Head: Present: Atraumatic, Normocephalic Pupils: Present: PERRL Extroacular Muscles: Present: EOMI Conjunctiva: Present: Normal Mouth: Present: Moist Mucous Membranes Neck: Present: Normal Range of Motion Respiratory/Chest: Present: Clear to Auscultation, Good Air Exchange. No: Respiratory Distress, Accessory Muscle Use Cardiovascular: Present: Regular Rate and Rhythm, Normal S1, S2. No: Murmurs Abdomen: Present: Tenderness (severe, RUQ and epigastric), Normal Bowel Sounds, Guarding, Other (+ [place] signs). No: Peritoneal Signs, Rebound Back: Present: Normal Inspection. No: CVA Tenderness, Midline Tenderness, Para spinal Tenderness Upper Extremity: Present: Normal Inspection, Normal ROM, NORMAL PULSES, Neurovascularly Intact, Capillary Refill < 2s. No: Cyanosis, Edema, Temperature Abnormalties Lower Extremity: Present: Normal Inspection, NORMAL PULSES, Normal ROM, Neurovascularly Intact, Capillary Refill < 2 s. No: Edema, Tenderness, Swelling, Temperature Abnormalties Neurological: Present: GCS=15, CN II-XII Intact, Speech Normal, Motor Func Grossly Intact, Normal Sensory Function, Gait Normal Skin: Present: Warm, Dry, Normal Color. No: Rashes Lymphatic: No: Cervical Adenopathy Psychiatric: Present: Alert, Oriented x 3, Normal Insight, Normal Concentration, Normal Affect, Normal Mood Medical Decision Making ED Course and Treatment: Initial Plan: * CBC, CMP * Lipase * Coags * UA, culture * RUQ US * EKG * CXR * IVF * Toradol CBC remarkable for mild leukocytosis CMP remarkable for elevated LFTs Coags unremarkable UA unremarkable RUQ US shows cholelithiasis without cholecystitis CXR shows no active disease EKG shows sinus eve without ischemia Pain not relieved with Toradol, will give Morphine. 1440 Spoke with surgical garment fitter Adama who will come down to evaluate pt in ED. Patient reports resolution of pain with morphine. 1500 Patient examined at bedside by surgical garment fitter Adama under surgical attending Dr. Albright. Advises for admission with MRCP tomorrow and potential non-emergent cholecystectomy. Lipase markedly elevated [address] Fajardo who accepted patient for inpatient admission for Dr. Calabrese to med/surg floor with diagnosis of acute gallstone pancreatits with elevated LFTs. - Lab Interpretations Lab Results: PT 11.6 SECONDS (9.4-12.5) 07/19/18 13:05 INR 1.03 07/19/18 13:05 APTT 37.7 Seconds (26.9-38.3) 07/19/18 13:05 Total Bilirubin 4.6 mg/dL (0.2-1.3) H 07/19/18 13:05 AST 447 U/L (14-36) H D 07/19/18 13:05 ALT 526 U/L (7-56) H 07/19/18 13:05 Alkaline Phosphatase 226 U/L (38-126) H D 07/19/18 13:05 Total Protein 8.6 g/dL (5.8-8.3) H 07/19/18 13:05 Albumin 4.9 g/dL (3.0-4.8) H 07/19/18 13:05 Globulin 3.7 gm/dL 07/19/18 13:05 Albumin/Globulin Ratio 1.3 (1.1-1.8) 07/19/18 13:05 Urine Color Yellow (YELLOW) 07/19/18 13:05 Urine Appearance Clear (CLEAR) 07/19/18 13:05 Urine pH 6.0 (4.7-8.0) 07/19/18 13:05 Ur Specific [place] 1.020 (1.005-1.035) 07/19/18 13:05 Urine Protein Negative mg/dL (<30 mg/dL) 07/19/18 13:05 Urine Glucose (UA) Negative mg/dL (NEGATIVE) 07/19/18 13:05 Urine Ketones Negative mg/dL (NEGATIVE) 07/19/18 13:05 Urine Blood Negative (NEGATIVE) 07/19/18 13:05 Urine Nitrate Negative (NEGATIVE) 07/19/18 13:05 Urine Bilirubin Large (NEGATIVE) H 07/19/18 13:05 Urine Urobilinogen 0.2 E.U./dL (<1 E.U./dL) 07/19/18 13:05 Ur Leukocyte Esterase Negative [place]/uL (NEGATIVE) 07/19/18 13:05 07/19/18 13:05 07/19/18 13:05 Lab Results 07/19/18 13:05: Sodium 139, Potassium 4.3, Chloride 107, Carbon Dioxide 23, Anion Gap 14, BUN 9, Creatinine 0.7, Est GFR ( Amer) > 60, Est GFR (Non- Af Amer) > 60, Random Glucose 150 H, Calcium 10.0, Magnesium 2.0, Total Bilirubin 4.6 H, AST 447 H D, ALT 526 H, Alkaline Phosphatase 226 H D, Total Protein 8.6 H, Albumin 4.9 H, Globulin 3.7, Albumin/Globulin Ratio 1.3, Lipase Pending 07/19/18 13:05: Urine Color Yellow, Urine Appearance Clear, Urine pH 6.0, Ur Specific [place] 1.020, Urine Protein Negative, Urine Glucose (UA) Negative, Urine Ketones Negative, Urine Blood Negative, Urine Nitrate Negative, Urine Bilirubin Large H, Urine Urobilinogen 0.2, Ur Leukocyte Esterase Negative 07/19/18 13:05: PT 11.6, INR 1.03, APTT 37.7 07/19/18 13:05: WBC 11.3 H D, RBC 4.68, Hgb 12.7 D, Hct 39.3, MCV 84.0, MCH 27.1, MCHC 32.3, RDW 12.8, Plt Count 356, MPV 10.9, Gran % 84.8 H, Lymph % (Auto) 7.6 L, [place] % (Auto) 6.9 H, Eos % (Auto) 0.5 L, Baso % (Auto) 0.2, Gran # 9.62 H, Lymph # (Auto) 0.9 L, [place] # (Auto) 0.8 H, Eos # (Auto) 0.1, Baso # (Auto) 0.02 I have reviewed the lab results: Yes - RAD Interpretation Narrative RAD Interpretations (Text): RUQ US: Impression: Multiple Gallstones Radiology Orders: 07/19/18 13:10 GALLBLADDER & COMMON DUCT [US] 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: 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 - EKG Interpretation EKG Interpretation (Text): Rate 51; Sinus Eve; Normal intervals; No STEMI or other signs of ischemia Interpreted by ED Physician: Yes Type: 12 lead EKG - Medication Orders Current Medication Orders: Discontinued Medications Sodium Chloride (Sodium Chloride 0.9%) 1,000 mls @ 999 mls/hr IV .Q1H1M STA Stop: 07/19/18 14:27 Last Admin: 07/19/18 14:35 Dose: 999 mls/hr eMAR Start Stop Document 07/19/18 14:35 BB (Rec: 07/19/18 14:35 [id number] Intravenous Solution Start Date 07/19/18 Start Time 14:35 End Date 07/19/18 Ketorolac Tromethamine (Toradol) 30 mg IVP STAT STA Stop: 07/19/18 13:11 Last Admin: 07/19/18 13:27 Dose: 30 mg [facility] Pain Assessment Document 07/19/18 13:27 BB (Rec: 07/19/18 13:28 [id number] Pain Reassessment Is this a pain reassessment? No Sleep Is patient sleeping during reassessment? No Presence of Pain Presence of Pain Yes Pain Scale Used Protocol: [facility] Pain Scale Used Numeric Location Pain Location Body Site Abdomen Description Description Constant Intensity of Pain at present 7 Pain Behavior Moaning Withdrawal from Touch Grasping Site Restlessness IVP Administration Document 07/19/18 13:27 BB (Rec: 07/19/18 13:28 [id number] Charges for Administration # of IVP Administrations 1 Re-Assess: MAR Pain Assessment Document 07/19/18 14:25 BB (Rec: 07/19/18 14:41 BB [id number]) Pain Reassessment Is this a pain reassessment? Yes Sleep Is patient sleeping during reassessment? No Presence of Pain Presence of Pain Yes Pain Scale Used Protocol: [facility] Pain Scale Used Numeric Location Left, Right or Bilateral Right Pain Location Body Site Abdomen Description Description Constant Intensity of Pain at present 7 Pain Behavior Moaning Withdrawal from Touch Pain not relieved and LIP/MD was Yes notified Morphine Sulfate (Morphine) 2 mg IVP STAT STA Stop: 07/19/18 14:13 Last Admin: 07/19/18 14:24 Dose: 2 mg MAR Pain Assessment Document 07/19/18 14:24 BB (Rec: 07/19/18 14:27 [id number] Pain Reassessment Is this a pain reassessment? Yes Sleep Is patient sleeping during reassessment? No Presence of Pain Presence of Pain Yes Pain Scale Used Protocol: PSCALES Pain Scale Used Numeric Location Pain Location Body Site Abdomen Description Description Constant Intensity of Pain at present 7 Pain Behavior Moaning Grasping Site Rubbing Site Aggravating Factors ADL's IVP Administration Document 07/19/18 14:24 BB (Rec: 07/19/18 14:27 [facility] [id number]) Charges for Administration # of IVP Administrations 1 Disposition/Present on Arrival - Present on Arrival Any Indicators Present on Arrival: No History of DVT/PE: No History of Uncontrolled Diabetes: No Urinary Catheter: No History of Decub. Ulcer: No History Surgical Site Infection Following: None - Disposition Have Diagnosis and Disposition been Completed?: Yes Diagnosis: Elevated LFTs, Acute pancreatitis, Cholelithiasis Disposition: HOSPITALIZED Disposition Time: 15:00 Patient Plan: Admission Condition: STABLE
[2018-07-19 15:09] LABS: LIPASE 27342 U/L (23-300)
--- NOTE | 2018-07-19 15:32 | CP.PCM.CON ---
History of Present Illness - History of Present Illness History of Present Illness: Surgery: Dr. Albright CC: Abd pain HPI: 22F w. pmh of gallstones presents to ED w. acute onset abd pain x 1 day. She states that she was first diagnosed w. gallstones 1 yr ago. Since then she has been having intermittent pain. Today the pain was constant and increased severity prompting her to come to ED. Pain is in epigastric area. It is accompanied by nausea and multiple episodes of vomiting. She has decreased appetite. Denies diarrhea. No F/C. Her LMP was 07/18, it was normal. Workup done in ED was consistent w. gallstone pancreatitis for which surgery was consulted. PMH: gallstones PSH: none Meds: none NKDA Social: No EOTH/tobacco/drugs Fhx: Non-contributory Review of Systems - Review of Systems All systems: reviewed and no additional remarkable complaints except (HPI) Past Patient History - Infectious Disease Hx of Infectious Diseases: None - Past Social History Smoking Status: Light Smoker < 10 Cigarettes Daily - CARDIAC Hx Cardiac Disorders: No - MUSCULOSKELETAL/RHEUMATOLOGICAL Hx Falls: No - GASTROINTESTINAL Other/Comment: gall bladder problem - GENITOURINARY/GYNECOLOGICAL Hx Genitourinary Disorders: No - PSYCHIATRIC Hx Substance Use: No - SURGICAL HISTORY Hx Surgeries: No - ANESTHESIA Hx Anesthesia Reactions: No Meds Allergies/Adverse Reactions: Allergies Allergy/AdvReac Type Severity Reaction Status Date / Time No Known Allergies Allergy Verified 06/08/18 08:23 Physical Exam - Constitutional Appears: Non-toxic, No Acute Distress - Head Exam Head Exam: ATRAUMATIC, NORMOCEPHALIC - Eye Exam Eye Exam: EOMI - ENT Exam ENT Exam: Mucous Membranes Moist - Neck Exam Neck exam: Positive for: Full Rom - Respiratory Exam Respiratory Exam: NORMAL BREATHING PATTERN. absent: Accessory Muscle Use, Respiratory Distress - Cardiovascular Exam Cardiovascular Exam: RRR - GI/Abdominal Exam GI & Abdominal Exam: Soft, Tenderness (epigastric, +Muprhy). absent: Distended, Firm, Guarding, Rigid - Extremities Exam Extremities exam: Negative for: calf tenderness, pedal pulses present - Neurological Exam Neurological exam: Alert, Oriented x3 - Psychiatric Exam Psychiatric exam: Normal Affect, Normal Mood Results - Vital Signs Recent Vital Signs: Last Vital Signs Temp 98.5 F 07/19/18 12:23 Pulse 52 L 07/19/18 14:35 Resp 18 07/19/18 14:35 BP 131/74 07/19/18 14:35 Pulse Ox 100 07/19/18 14:35 - Labs Result Diagrams: 07/19/18 13:05 07/19/18 13:05 Labs: Laboratory Results - last 24 hr 07/19/18 07/19/18 07/19/18 13:05 13:05 13:05 WBC 11.3 H D RBC 4.68 Hgb 12.7 D Hct 39.3 MCV 84.0 MCH 27.1 MCHC 32.3 RDW 12.8 Plt Count 356 MPV 10.9 Gran % 84.8 H Lymph % (Auto) 7.6 L [place] % (Auto) 6.9 H Eos % (Auto) 0.5 L Baso % (Auto) 0.2 Gran # 9.62 H Lymph # (Auto) 0.9 L [place] # (Auto) 0.8 H Eos # (Auto) 0.1 Baso # (Auto) 0.02 PT 11.6 INR 1.03 APTT 37.7 Sodium Potassium Chloride Carbon Dioxide Anion Gap BUN Creatinine Est GFR ( Amer) Est GFR (Non-Af Amer) Random Glucose Calcium Magnesium Total Bilirubin AST ALT Alkaline Phosphatase Total Protein Albumin Globulin Albumin/Globulin Ratio Lipase Urine Color Yellow Urine Appearance Clear Urine pH 6.0 Ur Specific [place] 1.020 Urine Protein Negative Urine Glucose (UA) Negative Urine Ketones Negative Urine Blood Negative Urine Nitrate Negative Urine Bilirubin Large H Urine Urobilinogen 0.2 Ur Leukocyte Esterase Negative 07/19/18 13:05 WBC RBC Hgb Hct MCV MCH MCHC RDW Plt Count MPV Gran % Lymph % (Auto) [place] % (Auto) Eos % (Auto) Baso % (Auto) Gran # Lymph # (Auto) [place] # (Auto) Eos # (Auto) Baso # (Auto) PT INR APTT Sodium 139 Potassium 4.3 Chloride 107 Carbon Dioxide 23 Anion Gap 14 BUN 9 Creatinine 0.7 Est GFR ( Amer) > 60 Est GFR (Non-Af Amer) > 60 Random Glucose 150 H Calcium 10.0 Magnesium 2.0 Total Bilirubin 4.6 H AST 447 H D ALT 526 H Alkaline Phosphatase 226 H D Total Protein 8.6 H Albumin 4.9 H Globulin 3.7 Albumin/Globulin Ratio 1.3 Lipase 71512 H Urine Color Urine Appearance Urine pH Ur Specific [place] Urine Protein Urine Glucose (UA) Urine Ketones Urine Blood Urine Nitrate Urine Bilirubin Urine Urobilinogen Ur Leukocyte Esterase - Imaging and Cardiology US - abdomen Status: Image reviewed by me, Report reviewed by me Assessment & Plan - Assessment and Plan (Free Text) Assessment: 22F w. gallstone pancreatitis -NPO -IVF -zofran -MRCP -GI consult -Pain management -will need cholecystectomy once optimized -d/w attending Zemaitis PGY4
[2018-07-19] MEDS ORDERED: Lactated Ringer's 1,000 ML IV SCH (16:15)
--- NOTE | 2018-07-19 16:29 | CP.PCM.HP ---
<AriRan - Last Filed: 07/19/18 21:37> History of Present Illness - History of Present Illness History of Present Illness: Ran Chapman, PGY-1 Medicine H&P Note for Dr. Calabrese: CC: RUQ and epigastric abd pain Pt is a 22 yo F with pmhx of alcoholic pancreatitis who presents to the ED for RUQ and epigastric abd pain x1 day. Pt states that she has had episodes of pain like this for the past year and was seen in this ED in May for a similar episode but was at the time. Pt states that today she began to have another bout of pain but this time the pain was unremitting and was associated with 4 bouts of non-bloody, non-billious emesis. Pt reports that the pain is currently rated at a 10/10 with radiation from the RUQ to the epigastric region. She reports that she was able to tolerate food yesterday but today is unable to tolerate PO intake and she has persistent nausea. She admits that this pain is something that she is familiar with but is just not improving over time. At this time she is denying fevers, chills, yellowing of eyes or skin, itching, chest pain, palpitations, SOB, cough, constipation, diarrhea, dysuria or hematuria. Pt does admit to RUQ and epigastric tenderness, nausea, vomiting and poor PO intake. Pt does admit to drinking a lot on Tuesday but does not remember how much she drank, she denies any other substance use. Pmhx: EtOH pancreatits Pshx: Denies Meds: Denies All: NKDA Soc: 4ppd x 10 yrs, she admits to drinking a lot over the weekend but is unsure the quantity, denies illicit drug use Fam: Mom: DM PMD: [place] Present on Admission - Present on Admission Any Indicators Present on Admission: No Review of Systems - Review of Systems Review of Systems: 12 point ROS is reviewed and negative except for noted in HPI above. Past Patient History - Infectious Disease Hx of Infectious Diseases: None - Past Social History Smoking Status: Light Smoker < 10 Cigarettes Daily - CARDIAC Hx Cardiac Disorders: No - MUSCULOSKELETAL/RHEUMATOLOGICAL Hx Falls: No - GASTROINTESTINAL Other/Comment: gall bladder problem - GENITOURINARY/GYNECOLOGICAL Hx Genitourinary Disorders: No - PSYCHIATRIC Hx Substance Use: No - SURGICAL HISTORY Hx Surgeries: No - ANESTHESIA Hx Anesthesia Reactions: No Meds Allergies/Adverse Reactions: Allergies Allergy/AdvReac Type Severity Reaction Status Date / Time No Known Allergies Allergy Verified 06/08/18 08:23 Physical Exam - Constitutional Appears: Non-toxic, No Acute Distress, Agitated, Other (uncomfortable) - Head Exam Head Exam: ATRAUMATIC, NORMAL INSPECTION, NORMOCEPHALIC - Eye Exam Eye Exam: EOMI, Normal appearance, PERRL - ENT Exam ENT Exam: Mucous Membranes Dry - Respiratory Exam Respiratory Exam: Clear to Auscultation Bilateral, NORMAL BREATHING PATTERN. absent: Accessory Muscle Use, Rales, Rhonchi, Wheezes, Respiratory Distress, Stridor - Cardiovascular Exam Cardiovascular Exam: RRR, +S1, +S2. absent: Gallop, Rubs - GI/Abdominal Exam GI & Abdominal Exam: Normal Bowel Sounds, Soft, Tenderness (present in the RUQ, and epigastric region upon light palpation. Tionesta sign +). absent: Distended, Firm - Extremities Exam Extremities exam: Positive for: normal capillary refill, normal inspection, pedal pulses present. Negative for: calf tenderness, pedal edema - Back Exam Back exam: NORMAL INSPECTION. absent: CVA tenderness (L), CVA tenderness (R) - Neurological Exam Neurological exam: Alert, Oriented x3 - Psychiatric Exam Psychiatric exam: Agitated, Normal Affect - Skin Skin Exam: Dry, Normal Color, Warm Results - Vital Signs Recent Vital Signs: Last Vital Signs Temp 98.5 F 07/19/18 12:23 Pulse 52 L 07/19/18 14:35 Resp 18 07/19/18 14:35 BP 131/74 07/19/18 14:35 Pulse Ox 100 07/19/18 14:35 - Labs Result Diagrams: 07/19/18 13:05 07/19/18 13:05 Labs: Laboratory Results - last 24 hr 07/19/18 07/19/18 07/19/18 13:05 13:05 13:05 WBC 11.3 H D RBC 4.68 Hgb 12.7 D Hct 39.3 MCV 84.0 MCH 27.1 MCHC 32.3 RDW 12.8 Plt Count 356 MPV 10.9 Gran % 84.8 H Lymph % (Auto) 7.6 L [place] % (Auto) 6.9 H Eos % (Auto) 0.5 L Baso % (Auto) 0.2 Gran # 9.62 H Lymph # (Auto) 0.9 L [place] # (Auto) 0.8 H Eos # (Auto) 0.1 Baso # (Auto) 0.02 PT 11.6 INR 1.03 APTT 37.7 Sodium Potassium Chloride Carbon Dioxide Anion Gap BUN Creatinine Est GFR ( Amer) Est GFR (Non-Af Amer) Random Glucose Calcium Magnesium Total Bilirubin AST ALT Alkaline Phosphatase Total Protein Albumin Globulin Albumin/Globulin Ratio Lipase Urine Color Yellow Urine Appearance Clear Urine pH 6.0 Ur Specific [place] 1.020 Urine Protein Negative Urine Glucose (UA) Negative Urine Ketones Negative Urine Blood Negative Urine Nitrate Negative Urine Bilirubin Large H Urine Urobilinogen 0.2 Ur Leukocyte Esterase Negative 07/19/18 13:05 WBC RBC Hgb Hct MCV MCH MCHC RDW Plt Count MPV Gran % Lymph % (Auto) [place] % (Auto) Eos % (Auto) Baso % (Auto) Gran # Lymph # (Auto) [place] # (Auto) Eos # (Auto) Baso # (Auto) PT INR APTT Sodium 139 Potassium 4.3 Chloride 107 Carbon Dioxide 23 Anion Gap 14 BUN 9 Creatinine 0.7 Est GFR ( Amer) > 60 Est GFR (Non-Af Amer) > 60 Random Glucose 150 H Calcium 10.0 Magnesium 2.0 Total Bilirubin 4.6 H AST 447 H D ALT 526 H Alkaline Phosphatase 226 H D Total Protein 8.6 H Albumin 4.9 H Globulin 3.7 Albumin/Globulin Ratio 1.3 Lipase 26737 H Urine Color Urine Appearance Urine pH Ur Specific [place] Urine Protein Urine Glucose (UA) Urine Ketones Urine Blood Urine Nitrate Urine Bilirubin Urine Urobilinogen Ur Leukocyte Esterase Assessment & Plan - Assessment and Plan (Free Text) Assessment: Pt is a 22 yo F with pmhx of alcoholic pancreatitis who presents to the ED for RUQ and epigastric abd pain x1 day. Abd U/S: showed multiple gallstones with out CBD dilation. [place] [address] and elevated AST and ALT of 447 and 526 respectively. Plan: 1) Acute pancreatitis likely 2/2 gallstones vs EtOH - Abd U/S: Multiple gallstones without CBD dilation - Transaminitis likely also 2/2 gallstone obstruction - NPO - LR @ 150 - Surgery consult, recs appreciated - OR tomorrow AM @ 10:30 - GI consulted - MRCP - Protonix 40 IVP - Zofran PRN for nausea - Morphine 2q6 IVP PRN PPx: GI: Protonix 40 IVP DVT: SCDs Case seen and discussed with Dr. Guanakito Chapman, PGY-1 <Wolf Calabrese - Last Filed: 07/22/18 15:12> Results - Vital Signs Recent Vital Signs: Last Vital Signs Temp 98.5 F 07/21/18 14:00 Pulse 54 L 07/21/18 14:00 Resp 20 07/21/18 14:00 BP 143/98 H 07/21/18 14:00 Pulse Ox 96 07/21/18 14:00 - Labs Result Diagrams: 07/21/18 06:45 07/21/18 06:45 Attending/Attestation - Attestation I have personally seen and examined this patient.: Yes I have fully participated in the care of the patient.: Yes I have reviewed all pertinent clinical information: Yes Notes (Text): 07/22/18 15:09 Patient was seen and examined with medical research associate. 22 yo F with PMH of alcohol and drug abuse is admitted with epigatric abdominal pain, found to have gall stone Pancreatitis. Patient is also found to have elevated LFT. We will start patient on IV hydration, analgestic and PPI. We will get MRCP. We will also get GI and surgery consult. Management plan was discussed in detail with patient. Education was provided.
[2018-07-19] MEDS: Morphine 2 mg/ml ISec IVP PRN (16:51)
[2018-07-19] MEDS ORDERED: Gadodiamide 287 MG/ML VIAL (15ML) IV ONE (17:04)
--- NOTE | 2018-07-19 17:04 | RAD ---
Date of service: 07/19/2018 HISTORY: abdominal pain COMPARISON: No prior. FINDINGS: LUNGS: No active pulmonary disease. PLEURA: No significant pleural effusion identified, no pneumothorax apparent. CARDIOVASCULAR: No aortic atherosclerotic calcification present. Normal cardiac size. No pulmonary vascular congestion. OSSEOUS STRUCTURES: No significant abnormalities. VISUALIZED UPPER ABDOMEN: Normal. OTHER FINDINGS: None. IMPRESSION: No active disease.
--- NOTE | 2018-07-19 18:03 | MRI ---
Date of service: 07/19/2018 PROCEDURE: Magnetic Resonance Cholangiopancreatography HISTORY: Elevated bilirubin COMPARISON: Right upper quadrant ultrasound performed earlier the same day. TECHNIQUE: Multiplanar, multisequence MR images of the abdomen were obtained, including heavily T2 weighted MRCP images of the biliary system. Rotating maximum intensity projection images of the biliary system were generated. 15 mL Omniscan administered intravenously FINDINGS: MRCP: The common bile duct is of a normal caliber. No evidence of choledocholithiasis. Mild left intrahepatic biliary ductal dilatation. LIVER: Unremarkable. GALLBLADDER: Distended with tiny dependent gallstones. No wall thickening/edema or pericholecystic fluid SPLEEN: Unremarkable. PANCREAS: Edematous with peripancreatic edema/inflammatory change ADRENALS: Unremarkable. KIDNEYS: Unremarkable. AORTA: No aneurysm. ASCITES: None. OTHER FINDINGS: None. IMPRESSION: Acute pancreatitis without evidence of hemorrhage or peripancreatic collection. Cholelithiasis without MR evidence of acute cholecystitis. No evidence of choledocholithiasis. Mild left-sided intrahepatic biliary ductal dilatation.
[2018-07-19] MEDS: Lactated Ringer's 1,000 ML IV SCH (19:50)
--- NOTE | 2018-07-19 22:56 | CARD ---
APPROVED REPORT Date of service: 07/19/2018 EKG Measurement Heart [id number] <Conclusion> Sinus bradycardia with sinus arrhythmia Otherwise normal ECG
[2018-07-20 01:28] VITALS: BMI 34.2
[2018-07-20 01:31] LABS: BARBITURATES, UR NEGATIVE (NEGATIVE); BENZODIAZEPINES, UR NEGATIVE (NEGATIVE); OPIATES, UR POSITIVE (NEGATIVE); PHENCYCLIDINE, UR NEGATIVE (NEGATIVE)
[2018-07-20] MEDS: Lactated Ringer's 1,000 ML IV SCH ×4 (02:00→23:47)
[2018-07-20] MEDS: Morphine 2 mg/ml ISec IVP PRN ×4 (05:07→23:43)
[2018-07-20 06:46] LABS: BASO # 0.01 K/mm3 (0.0-2.0); BASO % 0.1 % (0.0-3.0); EOS # 0.1 (0.0-0.7); EOS % 0.5 % (1.5-5.0); GRAN # 7.38 (1.4-6.5); GRAN % 76.7 % (50.0-68.0); LYMPH # 1.6 (1.2-3.4); MEAN CELL VOLUME 83.6 fl (80.0-105.0); MEAN CORPUSCULAR HEMOGLOBIN 26.6 pg (25.0-35.0); MEAN CORPUSCULAR HGB CONC 31.8 g/dl (31.0-37.0); MEAN PLATELET VOLUME 10.6 fl (7.0-11.0); MONO # 0.6 (0.1-0.6); MONO % 5.7 % (1.0-6.0); RBC 4.14 10^6/uL (3.5-6.1); RED CELL DISTRIBUTION WIDTH 12.7 % (11.5-14.5); WHITE BLOOD COUNT 9.6 10^3/uL (4.5-11.0)
[2018-07-20 07:24] LABS: ALB/GLOB RATIO 1.3 (1.1-1.8); ALBUMIN 3.8 g/dL (3.0-4.8); ALT/SGPT 342 U/L (7-56); AST/SGOT 198 U/L (14-36); BLOOD UREA NITROGEN 12 mg/dL (7-21); CALCIUM 8.9 mg/dL (8.4-10.5); GFR NON-AFRICAN AMERICAN > 60
--- NOTE | 2018-07-20 11:04 | CP.PCM.CON ---
<Jaspreet Palacios - Last Filed: 07/20/18 12:53> History of Present Illness - History of Present Illness History of Present Illness: PGY-4 GI Fellow Consult Note Pt is a 22 yo BF with h/o EtOH Pancreatitis, Tob Abuse, EtOH Abuse, Cholelithiasis presenting with Abd Pain. She reports sharp pain in epigastric and RUQ area associated with a few episodes of NB/NB emesis. States pain is sometimes worse with PO intake. Pain persisted to the point that she was unable to tolerated PO; therefore, presented for further evaluation. Of note, she had similar symptoms before, found to have cholelithiasis but was at the time; therefore, further care deferred at the time. She does report some heavy EtOH use about 5-6 days ago but felt OK days thereafter prior to the onset of these symptoms. She reports some subjective fevers. She denied any weight loss, dysphagia, melena, hematochezia nor prior endoscopic evaluations. 12 point ROS negative other than stated above MHx: EtOH pancreatits SurgHx: Denies Meds: Denies Fam: Mom: DM Soc: 06/30ppd x 10 yrs, she admits to drinking a lot over the weekend but is unsure the quantity, denies illicit drug use All: NKDA Past Patient History - Infectious Disease Hx of Infectious Diseases: None - Past Social History Smoking Status: Light Smoker < 10 Cigarettes Daily - CARDIAC Hx Cardiac Disorders: No - PULMONARY Hx Respiratory Disorders: No - NEUROLOGICAL Hx Neurological Disorder: No - HEENT Hx HEENT Problems: No - RENAL Hx Chronic Kidney Disease: No - ENDOCRINE/METABOLIC Hx Endocrine Disorders: No - HEMATOLOGICAL/ONCOLOGICAL Hx Blood Disorders: No - INTEGUMENTARY Hx Dermatological Problems: No - MUSCULOSKELETAL/RHEUMATOLOGICAL Hx Falls: No - GASTROINTESTINAL Hx Pancreatitis: Yes Other/Comment: gall bladder problem - GENITOURINARY/GYNECOLOGICAL Hx Genitourinary Disorders: No - PSYCHIATRIC Hx Psychophysiologic Disorder: No Hx Substance Use: No (denies) - SURGICAL HISTORY Hx Surgeries: No - ANESTHESIA Hx Anesthesia Reactions: No Meds Allergies/Adverse Reactions: Allergies Allergy/AdvReac Type Severity Reaction Status Date / Time No Known Allergies Allergy Verified 06/08/18 08:23 - Medications Medications: Current Medications Lactated Ringer's (Lactated Ringer's) 1,000 mls @ 150 mls/hr IV .Q6H40M [facility] Last Admin: 07/20/18 02:00 Dose: 150 mls/hr Morphine Sulfate (Morphine) 2 mg IVP Q6 PRN PRN Reason: Pain, severe (8-10) Last Admin: 07/20/18 05:07 Dose: 2 mg Ondansetron HCl (Zofran Inj) 4 mg IVP Q6H PRN PRN Reason: Nausea/Vomiting Pantoprazole Sodium (Protonix Inj) 40 mg IVP DAILY [facility] Physical Exam - Constitutional Appears: Well, No Acute Distress - Head Exam Head Exam: ATRAUMATIC, NORMAL INSPECTION - Eye Exam Eye Exam: EOMI. absent: Scleral icterus - ENT Exam ENT Exam: Mucous Membranes Dry. absent: Mucous Membranes Moist - Respiratory Exam Respiratory Exam: Clear to Auscultation Bilateral, NORMAL BREATHING PATTERN. absent: Accessory Muscle Use, Respiratory Distress - Cardiovascular Exam Cardiovascular Exam: REGULAR RHYTHM, RRR - GI/Abdominal Exam GI & Abdominal Exam: Normal Bowel Sounds, Soft, Tenderness (mildly ttp in epigastrum/RUQ w/o guarding). absent: Bruit, Diminished Bowel Sounds, Distende d, Firm, Guarding, Hernia, Organomegaly, Pulsatile Mass, Rebound, Rigid - Rectal Exam Rectal Exam: Deferred - Extremities Exam Extremities exam: Positive for: normal inspection. Negative for: pedal edema - Neurological Exam Neurological exam: Alert, CN II-XII Intact - Psychiatric Exam Psychiatric exam: Normal Affect, Normal Mood - Skin Skin Exam: Dry, Warm Results - Vital Signs Recent Vital Signs: Last Vital Signs Temp 98.7 F 07/20/18 06:00 Pulse 60 07/20/18 06:00 Resp 20 07/20/18 06:00 BP 109/68 07/20/18 06:00 Pulse Ox 100 07/20/18 06:00 - Labs Result Diagrams: 07/20/18 06:20 07/20/18 06:20 Labs: Laboratory Results - last 24 hr 07/19/18 07/19/18 07/19/18 13:05 13:05 13:05 WBC 11.3 H D RBC 4.68 Hgb 12.7 D Hct 39.3 MCV 84.0 MCH 27.1 MCHC 32.3 RDW 12.8 Plt Count 356 MPV 10.9 Gran % 84.8 H Lymph % (Auto) 7.6 L [place] % (Auto) 6.9 H Eos % (Auto) 0.5 L Baso % (Auto) 0.2 Gran # 9.62 H Lymph # (Auto) 0.9 L [place] # (Auto) 0.8 H Eos # (Auto) 0.1 Baso # (Auto) 0.02 PT 11.6 INR 1.03 APTT 37.7 Sodium Potassium Chloride Carbon Dioxide Anion Gap BUN Creatinine Est GFR ( Amer) Est GFR (Non-Af Amer) Random Glucose Calcium Phosphorus Magnesium Total Bilirubin Direct Bilirubin AST ALT Alkaline Phosphatase Total Protein Albumin Globulin Albumin/Globulin Ratio Lipase Urine Color Yellow Urine Appearance Clear Urine pH 6.0 Ur Specific [place] 1.020 Urine Protein Negative Urine Glucose (UA) Negative Urine Ketones Negative Urine Blood Negative Urine Nitrate Negative Urine Bilirubin Large H Urine Urobilinogen 0.2 Ur Leukocyte Esterase Negative Urine HCG, Qual Urine Opiates Screen Urine Methadone Screen Ur Barbiturates Screen Ur Phencyclidine Scrn Ur Amphetamines Screen U Benzodiazepines Scrn U Oth Cocaine Metabols U Cannabinoids Screen 07/19/18 07/19/18 07/20/18 13:05 16:00 00:39 WBC RBC Hgb Hct MCV MCH MCHC RDW Plt Count MPV Gran % Lymph % (Auto) [place] % (Auto) Eos % (Auto) Baso % (Auto) Gran # Lymph # (Auto) [place] # (Auto) Eos # (Auto) Baso # (Auto) PT INR APTT Sodium 139 Potassium 4.3 Chloride 107 Carbon Dioxide 23 Anion Gap 14 BUN 9 Creatinine 0.7 Est GFR ( Amer) > 60 Est GFR (Non-Af Amer) > 60 Random Glucose 150 H Calcium 10.0 Phosphorus Magnesium 2.0 Total Bilirubin 4.6 H Direct Bilirubin 3.9 H AST 447 H D ALT 526 H Alkaline Phosphatase 226 H D Total Protein 8.6 H Albumin 4.9 H Globulin 3.7 Albumin/Globulin Ratio 1.3 Lipase 90305 H Urine Color Urine Appearance Urine pH Ur Specific [place] Urine Protein Urine Glucose (UA) Urine Ketones Urine Blood Urine Nitrate Urine Bilirubin Urine Urobilinogen Ur Leukocyte Esterase Urine HCG, Qual Negative Urine Opiates Screen Urine Methadone Screen Ur Barbiturates Screen Ur Phencyclidine Scrn Ur Amphetamines Screen U Benzodiazepines Scrn U Oth Cocaine Metabols U Cannabinoids Screen 07/20/18 07/20/18 07/20/18 00:39 06:20 06:20 WBC 9.6 RBC 4.14 Hgb 11.0 L Hct 34.6 L MCV 83.6 MCH 26.6 MCHC 31.8 RDW 12.7 Plt Count 300 MPV 10.6 Gran % 76.7 H Lymph % (Auto) 17.0 L [place] % (Auto) 5.7 Eos % (Auto) 0.5 L Baso % (Auto) 0.1 Gran # 7.38 H Lymph # (Auto) 1.6 [place] # (Auto) 0.6 Eos # (Auto) 0.1 Baso # (Auto) 0.01 PT INR APTT Sodium 136 Potassium 3.7 Chloride 107 Carbon Dioxide 23 Anion Gap 10 BUN 12 Creatinine 0.6 L Est GFR ( Amer) > 60 Est GFR (Non-Af Amer) > 60 Random Glucose 80 Calcium 8.9 Phosphorus 3.6 Magnesium 1.8 Total Bilirubin 1.8 H Direct Bilirubin AST 198 H D ALT 342 H Alkaline Phosphatase 191 H Total Protein 6.7 Albumin 3.8 Globulin 2.9 Albumin/Globulin Ratio 1.3 Lipase Urine Color Urine Appearance Urine pH Ur Specific [place] Urine Protein Urine Glucose (UA) Urine Ketones Urine Blood Urine Nitrate Urine Bilirubin Urine Urobilinogen Ur Leukocyte Esterase Urine HCG, Qual Urine Opiates Screen Positive H Urine Methadone Screen Negative Ur Barbiturates Screen Negative Ur Phencyclidine Scrn Negative Ur Amphetamines Screen Positive H U Benzodiazepines Scrn Negative U Oth Cocaine Metabols Negative U Cannabinoids Screen Positive H Assessment & Plan - Assessment and Plan (Free Text) Assessment: 22 yo BF with Tob and EtOH Abuse, Cholelithiasis, presenting with abd pain. # Acute Pancreatitis: 3/3 criteria, w/o complication. Due to Gallstones as seen on imaging and suggested by labs. Symptoms also further worsened by concomitant EtOH and Tob Abuse. # Tob Abuse # EtOH Abuse Plan: - Plans for Cholecystectomy per Surgery - No indication for ERCP - IVF, Pain control and diet per Surgery and Primary - Supportive care - Turnaround Planner on Tob and EtOH cessation Pt seen and examined with Dr. Bender; please see attestation for further recs/changes. <Michael Bender Y - Last Filed: 07/20/18 13:33> Meds - Medications Medications: Current Medications Enoxaparin Sodium (Lovenox) 40 mg SC DAILY [facility]; Protocol Lactated Ringer's (Lactated Ringer's) 1,000 mls @ 150 mls/hr IV .Q6H40M [facility] Last Admin: 07/20/18 10:59 Dose: 150 mls/hr Morphine Sulfate (Morphine) 1 mg IVP Q6 PRN PRN Reason: Pain, severe (8-10) Last Admin: 07/20/18 11:43 Dose: 1 mg Ondansetron HCl (Zofran Inj) 4 mg IVP Q6H PRN PRN Reason: Nausea/Vomiting Pantoprazole Sodium (Protonix Inj) 40 mg IVP DAILY [facility] Last Admin: 07/20/18 11:00 Dose: 40 mg Results - Vital Signs Recent Vital Signs: Last Vital Signs Temp 98.7 F 07/20/18 06:00 Pulse 60 07/20/18 06:00 Resp 20 07/20/18 06:00 BP 109/68 07/20/18 06:00 Pulse Ox 100 07/20/18 06:00 - Labs Result Diagrams: 07/20/18 06:20 07/20/18 06:20 Labs: Laboratory Results - last 24 hr 07/19/18 07/19/18 07/19/18 13:05 13:05 13:05 WBC 11.3 H D RBC 4.68 Hgb 12.7 D Hct 39.3 MCV 84.0 MCH 27.1 MCHC 32.3 RDW 12.8 Plt Count 356 MPV 10.9 Gran % 84.8 H Lymph % (Auto) 7.6 L [place] % (Auto) 6.9 H Eos % (Auto) 0.5 L Baso % (Auto) 0.2 Gran # 9.62 H Lymph # (Auto) 0.9 L [place] # (Auto) 0.8 H Eos # (Auto) 0.1 Baso # (Auto) 0.02 PT 11.6 INR 1.03 APTT 37.7 Sodium Potassium Chloride Carbon Dioxide Anion Gap BUN Creatinine Est GFR ( Amer) Est GFR (Non-Af Amer) Random Glucose Calcium Phosphorus Magnesium Total Bilirubin Direct Bilirubin AST ALT Alkaline Phosphatase Total Protein Albumin Globulin Albumin/Globulin Ratio Lipase Urine Color Yellow Urine Appearance Clear Urine pH 6.0 Ur Specific [place] 1.020 Urine Protein Negative Urine Glucose (UA) Negative Urine Ketones Negative Urine Blood Negative Urine Nitrate Negative Urine Bilirubin Large H Urine Urobilinogen 0.2 Ur Leukocyte Esterase Negative Urine HCG, Qual Urine Opiates Screen Urine Methadone Screen Ur Barbiturates Screen Ur Phencyclidine Scrn Ur Amphetamines Screen U Benzodiazepines Scrn U Oth Cocaine Metabols U Cannabinoids Screen 07/19/18 07/19/18 07/20/18 13:05 16:00 00:39 WBC RBC Hgb Hct MCV MCH MCHC RDW Plt Count MPV Gran % Lymph % (Auto) [place] % (Auto) Eos % (Auto) Baso % (Auto) Gran # Lymph # (Auto) [place] # (Auto) Eos # (Auto) Baso # (Auto) PT INR APTT Sodium 139 Potassium 4.3 Chloride 107 Carbon Dioxide 23 Anion Gap 14 BUN 9 Creatinine 0.7 Est GFR ( Amer) > 60 Est GFR (Non-Af Amer) > 60 Random Glucose 150 H Calcium 10.0 Phosphorus Magnesium 2.0 Total Bilirubin 4.6 H Direct Bilirubin 3.9 H AST 447 H D ALT 526 H Alkaline Phosphatase 226 H D Total Protein 8.6 H Albumin 4.9 H Globulin 3.7 Albumin/Globulin Ratio 1.3 Lipase 72214 H Urine Color Urine Appearance Urine pH Ur Specific [place] Urine Protein Urine Glucose (UA) Urine Ketones Urine Blood Urine Nitrate Urine Bilirubin Urine Urobilinogen Ur Leukocyte Esterase Urine HCG, Qual Negative Urine Opiates Screen Urine Methadone Screen Ur Barbiturates Screen Ur Phencyclidine Scrn Ur Amphetamines Screen U Benzodiazepines Scrn U Oth Cocaine Metabols U Cannabinoids Screen 07/20/18 07/20/18 07/20/18 00:39 06:20 06:20 WBC 9.6 RBC 4.14 Hgb 11.0 L Hct 34.6 L MCV 83.6 MCH 26.6 MCHC 31.8 RDW 12.7 Plt Count 300 MPV 10.6 Gran % 76.7 H Lymph % (Auto) 17.0 L [place] % (Auto) 5.7 Eos % (Auto) 0.5 L Baso % (Auto) 0.1 Gran # 7.38 H Lymph # (Auto) 1.6 [place] # (Auto) 0.6 Eos # (Auto) 0.1 Baso # (Auto) 0.01 PT INR APTT Sodium 136 Potassium 3.7 Chloride 107 Carbon Dioxide 23 Anion Gap 10 BUN 12 Creatinine 0.6 L Est GFR ( Amer) > 60 Est GFR (Non-Af Amer) > 60 Random Glucose 80 Calcium 8.9 Phosphorus 3.6 Magnesium 1.8 Total Bilirubin 1.8 H Direct Bilirubin AST 198 H D ALT 342 H Alkaline Phosphatase 191 H Total Protein 6.7 Albumin 3.8 Globulin 2.9 Albumin/Globulin Ratio 1.3 Lipase Urine Color Urine Appearance Urine pH Ur Specific [place] Urine Protein Urine Glucose (UA) Urine Ketones Urine Blood Urine Nitrate Urine Bilirubin Urine Urobilinogen Ur Leukocyte Esterase Urine HCG, Qual Urine Opiates Screen Positive H Urine Methadone Screen Negative Ur Barbiturates Screen Negative Ur Phencyclidine Scrn Negative Ur Amphetamines Screen Positive H U Benzodiazepines Scrn Negative U Oth Cocaine Metabols Negative U Cannabinoids Screen Positive H Attending/Attestation - Attestation I have personally seen and examined this patient.: Yes I have fully participated in the care of the patient.: Yes I have reviewed all pertinent clinical information: Yes Notes (Text): 07/20/18 13:29 I have seen and examined patient with GI fellow. Agree with above documentation with the following additions. In brief, this is a 22 year old female with history of ETOH abuse, pancreatitis, cholelithiasis who presents to hospital with complaint of progressive abdominal pain. She reports sharp 10/10 epigastric pain radiating to RUQ which was worse following food consumption for the past 3 days. She had a similar prior episode last year which was thought to be related to gallstones, though treatment was deferred at that time due to state, she has since had an . She denies fever/chills, weight loss, jaundice, pruritis, or change in bowel habits. She does admit to intermittent heavy ETOH consumption. Abdominal pain Acute pancreatitis, secondary to gallstones MRCP reviewed by me showing no biliary dilation, normal caliber CBD Transaminitis - likely secondary to passed stone - Liquid diet as tolerated - LFTs trending down, continue to monitor - Continue with IVF hydration, pain control - Further plan as per surgery regarding timing of cholecystectomy - No further planned GI intervention, will sign off case. Please reconsult as necessary, thank you.
--- NOTE | 2018-07-20 11:34 | CP.PCM.PN ---
Subjective - Date & Time of Evaluation Date of Evaluation: 07/20/18 Time of Evaluation: 11:31 - Subjective Subjective: Surgery PT seen and examined. Pain controlled. c/o nausea. ambulates. Reports thirsts. Denies fever. Objective - Vital Signs/Intake and Output Vital Signs (last 24 hours): Temp Pulse Resp BP Pulse Ox 98.7 F 60 20 109/68 100 07/20/18 06:00 07/20/18 06:00 07/20/18 06:00 07/20/18 06:00 07/20/18 06:00 - Medications Medications: Current Medications Enoxaparin Sodium (Lovenox) 40 mg SC BID [facility]; Protocol Lactated Ringer's (Lactated Ringer's) 1,000 mls @ 150 mls/hr IV .Q6H40M [facility] Last Admin: 07/20/18 10:59 Dose: 150 mls/hr Morphine Sulfate (Morphine) 1 mg IVP Q6 PRN PRN Reason: Pain, severe (8-10) Ondansetron HCl (Zofran Inj) 4 mg IVP Q6H PRN PRN Reason: Nausea/Vomiting Pantoprazole Sodium (Protonix Inj) 40 mg IVP DAILY [facility] Last Admin: 07/20/18 11:00 Dose: 40 mg - Labs Labs: 07/20/18 06:20 07/20/18 06:20 PT 11.6 SECONDS (9.4-12.5) 07/19/18 13:05 INR 1.03 07/19/18 13:05 APTT 37.7 Seconds (26.9-38.3) 07/19/18 13:05 - Constitutional Appears: No Acute Distress - Head Exam Head Exam: ATRAUMATIC, NORMAL INSPECTION, NORMOCEPHALIC - Eye Exam Eye Exam: EOMI, Normal appearance, PERRL Pupil Exam: NORMAL ACCOMODATION, PERRL - ENT Exam ENT Exam: Mucous Membranes Moist, Normal Exam - Neck Exam Neck Exam: Full ROM, Normal Inspection. absent: Lymphadenopathy - Respiratory Exam Respiratory Exam: NORMAL BREATHING PATTERN - Cardiovascular Exam Cardiovascular Exam: REGULAR RHYTHM - GI/Abdominal Exam GI & Abdominal Exam: Soft, Tenderness - Exam Exam: NORMAL INSPECTION - Extremities Exam Extremities Exam: Full ROM - Back Exam Back Exam: NORMAL INSPECTION - Neurological Exam Neurological Exam: Alert, Awake, CN II-XII Intact, Normal Gait, Oriented x3 - Psychiatric Exam Psychiatric exam: Normal Affect, Normal Mood - Skin Skin Exam: Dry, Intact, Normal Color, Warm Assessment and Plan - Assessment and Plan (Free Text) Assessment: 22F w. gallstone pancreatitis MRCP no choledoco LFT went down Afebrile -CLD -IVF -zofran -GI consult -Pain management -will need cholecystectomy once optimized: Possibly on Tuesday AM -d/w attending
--- NOTE | 2018-07-20 16:39 | CP.PCM.PN ---
<Otilio Ramos - Last Filed: 07/20/18 16:35> Subjective - Date & Time of Evaluation Date of Evaluation: 07/20/18 Time of Evaluation: 08:00 - Subjective Subjective: Otilio Ramos PGY1 Medicine Progress Note for Dr. Calabrese Patient seen and examined at bedside this morning. She still has abdominal pain and nausea. She denied cp, sob, bowel/bladder changes, fevers, chills. A full 12 point ROS was conducted and unremarkable except as stated above. Objective - Vital Signs/Intake and Output Vital Signs (last 24 hours): Temp Pulse Resp BP Pulse Ox 98.7 F 60 20 109/68 100 07/20/18 06:00 07/20/18 06:00 07/20/18 06:00 07/20/18 06:00 07/20/18 06:00 - Medications Medications: Current Medications Enoxaparin Sodium (Lovenox) 40 mg SC DAILY [facility]; Protocol Lactated Ringer's (Lactated Ringer's) 1,000 mls @ 150 mls/hr IV .Q6H40M [facility] Last Admin: 07/20/18 10:59 Dose: 150 mls/hr Morphine Sulfate (Morphine) 1 mg IVP Q6 PRN PRN Reason: Pain, severe (8-10) Last Admin: 07/20/18 11:43 Dose: 1 mg Ondansetron HCl (Zofran Inj) 4 mg IVP Q6H PRN PRN Reason: Nausea/Vomiting Pantoprazole Sodium (Protonix Inj) 40 mg IVP DAILY [facility] Last Admin: 07/20/18 11:00 Dose: 40 mg - Labs Labs: 07/20/18 06:20 07/20/18 06:20 PT 11.6 SECONDS (9.4-12.5) 07/19/18 13:05 INR 1.03 07/19/18 13:05 APTT 37.7 Seconds (26.9-38.3) 07/19/18 13:05 - Constitutional Appears: No Acute Distress - Head Exam Head Exam: ATRAUMATIC, NORMAL INSPECTION, NORMOCEPHALIC - Eye Exam Eye Exam: EOMI, Normal appearance Pupil Exam: NORMAL ACCOMODATION - ENT Exam ENT Exam: Mucous Membranes Moist - Respiratory Exam Respiratory Exam: Clear to Ausculation Bilateral, NORMAL BREATHING PATTERN. absent: Rales, Rhonchi, Wheezes - Cardiovascular Exam Cardiovascular Exam: RRR, +S1, +S2 - GI/Abdominal Exam GI & Abdominal Exam: Soft, Tenderness (epigastric and RUQ tenderness ), Normal Bowel Sounds. absent: Firm, Guarding, Rigid, Rebound - Extremities Exam Extremities Exam: Full ROM, Normal Capillary Refill, Normal Inspection. absent: Joint Swelling, Pedal Edema - Back Exam Back Exam: NORMAL INSPECTION - Neurological Exam Neurological Exam: Alert, Awake, Oriented x3 - Psychiatric Exam Psychiatric exam: Normal Affect, Normal Mood - Skin Skin Exam: Dry, Intact, Normal Color, Warm Assessment and Plan - Assessment and Plan (Free Text) Assessment: Patient is a 22 yo F with pmhx of alcoholic pancreatitis who presents to the ED for RUQ and epigastric abd pain x1 day. Abd U/S: showed multiple gallstones with out CBD dilation. Pt is noted to have significantly elevated lipase and transaminitis. She is admitted for acute pancreatitis 2/2 gallstones. Plan: Acute pancreatitis 2/2 Cholelithiasis - Surgery recs appreciated. Given patient's significantly elevated lipase, patient needs to be medically optimized prior to surgery. Surgical team is planning lap jacky possible for Tuesday morning, 07/24 - MRCP: acute pancreatitis. Cholelithiasis without evidence of cholecystitis or choledocholithiasis. - Abd U/S: Multiple gallstones without CBD dilation - Transaminitis likely also 2/2 gallstone obstruction - downtrending - Leukocytosis - downtrending - Since surgery is delayed; resume patient on liquid diet and advance diet as tolerated - tapered morphine down given that patient is in sinus eve but asymptomatic - c/w LR @ 150 - c/w Zofran PRN for nausea - GI consulted. Recs appreciated. No further GI intervention except as management above. - Lipase was over 27,000 on admission Hx Alcohol and substance abuse - Counseled on the importance of alcohol and drug cessation - UDS was positive for opiates, amphetamines, cannabinoids - Patient admits to taking ecstasy a few days ago GI ppx: Protonix 40 IVP DVT ppx: lovenox Dispo: Continue to monitor patient on the floor. Tentative plan is for cholecystectomy on Tuesday, 07/24. Otherwise, advance diet as tolerated and cont inue with hydration. Case was discussed and reviewed with Attending Physician, Dr. Calabrese <Wolf Calabrese - Last Filed: 07/22/18 15:15> Objective - Vital Signs/Intake and Output Vital Signs (last 24 hours): Temp Pulse Resp BP Pulse Ox 98.5 F 54 L 20 143/98 H 96 07/21/18 14:00 07/21/18 14:00 07/21/18 14:00 07/21/18 14:00 07/21/18 14:00 - Labs Labs: 07/21/18 06:45 07/21/18 06:45 PT 11.6 SECONDS (9.4-12.5) 07/19/18 13:05 INR 1.03 07/19/18 13:05 APTT 37.7 Seconds (26.9-38.3) 07/19/18 13:05 Attending/Attestation - Attestation I have personally seen and examined this patient.: Yes I have fully participated in the care of the patient.: Yes I have reviewed all pertinent clinical information, including history, physical exam and plan: Yes Notes (Text): 07/22/18 15:15 Medical record note made by the resident after discussion with my direction and input after the patient was personally seen and examined by me. I have reviewed the chart and agree that the record accurately reflects by personal performance of the history, physical exam, data review, and medical decision-making, in the course for the patient. I have also personally directed the plan of care.
[2018-07-20] MEDS ORDERED: Enoxaparin 40 mg Syringe SC SCH (18:00)
[2018-07-21] MEDS: Lactated Ringer's 1,000 ML IV SCH ×2 (06:42→13:56)
[2018-07-21 07:08] LABS: BASO # 0.01 K/mm3 (0.0-2.0); BASO % 0.1 % (0.0-3.0); EOS # 0.2 (0.0-0.7); EOS % 2.4 % (1.5-5.0); GRAN # 5.59 (1.4-6.5); GRAN % 66.6 % (50.0-68.0); HEMOGLOBIN 10.2 g/dL (12.0-16.0); LYMPH # 1.9 (1.2-3.4); MEAN CELL VOLUME 83.8 fl (80.0-105.0); MEAN CORPUSCULAR HEMOGLOBIN 26.2 pg (25.0-35.0); MEAN CORPUSCULAR HGB CONC 31.3 g/dl (31.0-37.0); MEAN PLATELET VOLUME 10.8 fl (7.0-11.0); MONO # 0.8 (0.1-0.6); MONO % 8.9 % (1.0-6.0); RBC 3.89 10^6/uL (3.5-6.1); RED CELL DISTRIBUTION WIDTH 12.6 % (11.5-14.5); WHITE BLOOD COUNT 8.4 10^3/uL (4.5-11.0)
[2018-07-21 07:30] LABS: ALB/GLOB RATIO 1.3 (1.1-1.8); ALBUMIN 3.4 g/dL (3.0-4.8); ALT/SGPT 212 U/L (7-56); AST/SGOT 59 U/L (14-36); BLOOD UREA NITROGEN 7 mg/dL (7-21); CALCIUM 8.8 mg/dL (8.4-10.5); GFR NON-AFRICAN AMERICAN > 60
[2018-07-21] MEDS: Morphine 2 mg/ml ISec IVP PRN (08:37)
--- NOTE | 2018-07-21 08:56 | CP.PCM.PN ---
Subjective - Date & Time of Evaluation Date of Evaluation: 07/21/18 Time of Evaluation: 08:43 - Subjective Subjective: Resident Progress Note for Surgery: Dr. Albright Patient examined at bedside. No acute events overnight. Patient admits to abdominal pain but denies fever, chills, nausea, vomiting. Plan for OR on Tuesday. Objective - Vital Signs/Intake and Output Vital Signs (last 24 hours): Temp Pulse Resp BP Pulse Ox 98 F 53 L 18 155/100 H 100 07/20/18 22:51 07/20/18 22:51 07/20/18 22:51 07/20/18 22:51 07/20/18 22:51 Intake and Output: 07/21/18 07/21/18 06:59 18:59 Intake Total 1999 Balance 1999 - Medications Medications: Current Medications Enoxaparin Sodium (Lovenox) 40 mg SC DAILY [facility]; Protocol Lactated Ringer's (Lactated Ringer's) 1,000 mls @ 150 mls/hr IV .Q6H40M [facility] Last Admin: 07/21/18 06:42 Dose: 150 mls/hr Morphine Sulfate (Morphine) 1 mg IVP Q6 PRN PRN Reason: Pain, severe (8-10) Last Admin: 07/21/18 08:37 Dose: 1 mg Ondansetron HCl (Zofran Inj) 4 mg IVP Q6H PRN PRN Reason: Nausea/Vomiting Pantoprazole Sodium (Protonix Inj) 40 mg IVP DAILY [facility] Last Admin: 07/20/18 11:00 Dose: 40 mg - Labs Labs: 07/21/18 06:45 07/21/18 06:45 PT 11.6 SECONDS (9.4-12.5) 07/19/18 13:05 INR 1.03 07/19/18 13:05 APTT 37.7 Seconds (26.9-38.3) 07/19/18 13:05 - Additional Findings Additional findings: - Constitutional Appears: No Acute Distress - Head Exam Head Exam: ATRAUMATIC, NORMOCEPHALIC - Eye Exam Eye Exam: EOMI - ENT Exam ENT Exam: Mucous Membranes Moist, Normal Exam - Respiratory Exam Respiratory Exam: NORMAL BREATHING PATTERN - Cardiovascular Exam Cardiovascular Exam: REGULAR RHYTHM - GI/Abdominal Exam GI & Abdominal Exam: Soft, Tenderness - Extremities Exam Extremities Exam: Full ROM - Back Exam Back Exam: NORMAL INSPECTION - Neurological Exam Neurological Exam: Alert, Awake, Oriented x3 - Skin Skin Exam: Dry, Intact, Normal Color, Warm Assessment and Plan - Assessment and Plan (Free Text) Assessment: Patient is a 22 year old female with past medical history of alcoholic pancreatitis, presenting with abdominal pain and was found to have pancreatitis. Plan: - afebrile with no leukocytosis - transaminitis trending down - MRCP shows acute pancreatitis, no evidence of cholecystitis or choledocholithiasis - continue LR @ 150 ccs/hr and clear liquid diet - Zofran 4 mg IVP Q6H PRN - Morphine 1 mg IV Q6 PRN - further management per primary team - further recs per Dr. Jose Ramon Ch PGY-1
[2018-07-21 09:48] VITALS: RESP 20
[2018-07-21] MEDS ORDERED: Enoxaparin 40 mg Syringe SC SCH (10:00)
--- NOTE | 2018-07-21 11:45 | CP.PCM.PN ---
<Ran Chapman - Last Filed: 07/22/18 02:34> Subjective - Date & Time of Evaluation Date of Evaluation: 07/21/18 Time of Evaluation: 11:44 - Subjective Subjective: Ran Chapman, PGY-1 Medicine Progress Note for Dr. Calabrese: Pt was seen and examined this AM at bedside. Pt states that her abd pain is improving and she is able to tolerate her CLD. Pt reports that she is able to walk around with out difficulty but with ambulation and if she has fluids too quickly she begins to feel some pain and nausea. She otherwise reports no other acute complaints at this time. Objective - Vital Signs/Intake and Output Vital Signs (last 24 hours): Temp Pulse Resp BP Pulse Ox 99 F 50 L 20 149/85 100 07/21/18 06:00 07/21/18 06:00 07/21/18 06:00 07/21/18 06:00 07/21/18 06:00 Intake and Output: 07/21/18 07/21/18 06:59 18:59 Intake Total 1999 Balance 1999 - Medications Medications: Current Medications Enoxaparin Sodium (Lovenox) 40 mg SC DAILY [facility]; Protocol Last Admin: 07/21/18 10:33 Dose: Not Given Lactated Ringer's (Lactated Ringer's) 1,000 mls @ 150 mls/hr IV .Q6H40M [facility] Last Admin: 07/21/18 06:42 Dose: 150 mls/hr Morphine Sulfate (Morphine) 1 mg IVP Q6 PRN PRN Reason: Pain, severe (8-10) Last Admin: 07/21/18 08:37 Dose: 1 mg Ondansetron HCl (Zofran Inj) 4 mg IVP Q6H PRN PRN Reason: Nausea/Vomiting Pantoprazole Sodium (Protonix Inj) 40 mg IVP DAILY [facility] Last Admin: 07/21/18 09:29 Dose: 40 mg - Labs Labs: 07/21/18 06:45 07/21/18 06:45 PT 11.6 SECONDS (9.4-12.5) 07/19/18 13:05 INR 1.03 07/19/18 13:05 APTT 37.7 Seconds (26.9-38.3) 07/19/18 13:05 - Constitutional Appears: Non-toxic, No Acute Distress - Head Exam Head Exam: ATRAUMATIC, NORMAL INSPECTION, NORMOCEPHALIC - Eye Exam Eye Exam: EOMI, Normal appearance, PERRL - Respiratory Exam Respiratory Exam: Clear to Ausculation Bilateral, NORMAL BREATHING PATTERN. absent: Accessory Muscle Use, Rales, Rhonchi, Wheezes, Respiratory Distress - Cardiovascular Exam Cardiovascular Exam: RRR, +S1, +S2. absent: Gallop, Rubs - GI/Abdominal Exam GI & Abdominal Exam: Soft, Tenderness (epigastric and RUQ), Normal Bowel Sounds. absent: Firm, Guarding, Rigid - Extremities Exam Extremities Exam: Normal Inspection. absent: Calf Tenderness, Pedal Edema - Back Exam Back Exam: NORMAL INSPECTION. absent: CVA tenderness (L), CVA tenderness (R) - Neurological Exam Neurological Exam: Alert, Awake, Oriented x3 - Psychiatric Exam Psychiatric exam: Normal Affect, Normal Mood - Skin Skin Exam: Dry, Normal Color, Warm Assessment and Plan - Assessment and Plan (Free Text) Assessment: Pt is a 22 yo F with pmhx of alcoholic pancreatitis who presents to the ED for RUQ and epigastric abd pain x1 day. Abd U/S: showed multiple gallstones with out CBD dilation. [place] [address] and elevated AST and ALT of 447 and 526 respectively which is now downtrending. Pt is scheduled for OR on Tuesday. Plan: 1) Acute pancreatitis 2/2 Cholelithiasis - Surgery recs appreciated. Given patient's significantly elevated lipase on initial presentation, patient needs to be medically optimized prior to surgery. Surgical team is planning lap jacky possible for Tuesday morning, 07/24 - MRCP: acute pancreatitis. Cholelithiasis without evidence of cholecystitis or choledocholithiasis. - Abd U/S: Multiple gallstones without CBD dilation - Transaminitis likely also 2/2 gallstone obstruction - downtrending - Leukocytosis - downtrending - Pt tolerated CLD so will be advanced to FLD for lunch. - c/w LR @ 100 - c/w Zofran PRN for nausea - GI consulted. Recs appreciated. No further GI intervention except as management above. - Lipase was over 27,000 on admission 2) Hx Alcohol and substance abuse - Counseled on the importance of alcohol and drug cessation - UDS was positive for opiates, amphetamines, cannabinoids - Patient admits to taking ecstasy a few days ago GI ppx: Protonix 40 IVP DVT ppx: lovenox Dispo: Continue to monitor patient on the floor. Tentative plan is for cho lecystectomy on Tuesday, 07/24. Otherwise, advance diet as tolerated and continue with hydration. Case seen and discussed with Dr. Guanakito Chapman, PGY-1 <Wolf Calabrese - Last Filed: 07/22/18 15:15> Objective - Vital Signs/Intake and Output Vital Signs (last 24 hours): Temp Pulse Resp BP Pulse Ox 98.5 F 54 L 20 143/98 H 96 07/21/18 14:00 07/21/18 14:00 07/21/18 14:00 07/21/18 14:00 07/21/18 14:00 - Labs Labs: 07/21/18 06:45 07/21/18 06:45 PT 11.6 SECONDS (9.4-12.5) 07/19/18 13:05 INR 1.03 07/19/18 13:05 APTT 37.7 Seconds (26.9-38.3) 07/19/18 13:05 Attending/Attestation - Attestation I have personally seen and examined this patient.: Yes I have fully participated in the care of the patient.: Yes I have reviewed all pertinent clinical information, including history, physical exam and plan: Yes Notes (Text): 07/22/18 15:15 22 yo F with PMH of alcohol and drug abuse was admitted with epigatric abdominal pain, found to have gall stone Pancreatitis. Patient was also found to have elevated LFT. MRCP: acute pancreatitis. Cholelithiasis without evidence of cholecystitis or choledocholithiasis. - Abd U/S: Multiple gallstones without CBD dilation LFT are coming down, Pain is better, we will advance to full liquid diet. Patient is schedule for Cholycystectomy on 07/24/18 Management plan was discussed in detail with patient. Education was provided.
[2018-07-21 15:14] VITALS: BP 143/98; PULSE 54; TEMP 98.5; O2SAT 96
[2018-07-21] MEDS ORDERED: Lactated Ringer's 1,000 ML IV SCH (19:30)
--- NOTE | 2018-07-22 15:34 | CP.PCM.DIS ---
Provider - Provider Date of Admission: 07/19/18 15:28 Attending physician: Wolf Calabrese MD Consults: 07/19/18 15:24 General Surgery Consult Stat Comment: Consulting Provider: Karsten Albright Consulting Physician: Karsten Albright Reason for Consult: Pancreatitis, Cholelithiasis Time Spent in preparation of Discharge (in minutes): 45 Diagnosis - Discharge Diagnosis (1) Acute pancreatitis Status: Acute (2) Cholelithiasis Status: Acute (3) Elevated LFTs Status: Acute Hospital Course - Lab Results Lab Results: Micro Results 07/19/18 17:00 Blood Blood Culture - Preliminary NO GROWTH AFTER 48 HOURS 07/19/18 17:30 Blood Blood Culture - Preliminary NO GROWTH AFTER 48 HOURS 07/19/18 13:05 Urine Random Urine Culture - Final No Growth (<1,000 CFU/ML) Most Recent Lab Values WBC 8.4 10^3/uL (4.5-11.0) 07/21/18 06:45 RBC 3.89 10^6/uL (3.5-6.1) 07/21/18 06:45 Hgb 10.2 g/dL (12.0-16.0) L 07/21/18 06:45 Hct 32.6 % (36.0-48.0) L 07/21/18 06:45 MCV 83.8 fl (80.0-105.0) 07/21/18 06:45 MCH 26.2 pg (25.0-35.0) 07/21/18 06:45 MCHC 31.3 g/dl (31.0-37.0) 07/21/18 06:45 RDW 12.6 % (11.5-14.5) 07/21/18 06:45 Plt Count 271 10^3/uL (120.0-450.0) 07/21/18 06:45 MPV 10.8 fl (7.0-11.0) 07/21/18 06:45 Gran % 66.6 % (50.0-68.0) 07/21/18 06:45 Lymph % (Auto) 22.0 % (22.0-35.0) 07/21/18 06:45 [place] % (Auto) 8.9 % (1.0-6.0) H 07/21/18 06:45 Eos % (Auto) 2.4 % (1.5-5.0) 07/21/18 06:45 Baso % (Auto) 0.1 % (0.0-3.0) 07/21/18 06:45 Gran # 5.59 (1.4-6.5) 07/21/18 06:45 Lymph # (Auto) 1.9 (1.2-3.4) 07/21/18 06:45 [place] # (Auto) 0.8 (0.1-0.6) H 07/21/18 06:45 Eos # (Auto) 0.2 (0.0-0.7) 07/21/18 06:45 Baso # (Auto) 0.01 K/mm3 (0.0-2.0) 07/21/18 06:45 PT 11.6 SECONDS (9.4-12.5) 07/19/18 13:05 INR 1.03 07/19/18 13:05 APTT 37.7 Seconds (26.9-38.3) 07/19/18 13:05 Sodium 135 mmol/L (132-148) 07/21/18 06:45 Potassium 3.6 mmol/L (3.6-5.0) 07/21/18 06:45 Chloride 103 mmol/L (98-107) 07/21/18 06:45 Carbon Dioxide 28 mmol/L (21-33) 07/21/18 06:45 Anion Gap 8 (10-20) L 07/21/18 06:45 BUN 7 mg/dL (7-21) 07/21/18 06:45 Creatinine 0.5 mg/dl (0.7-1.2) L 07/21/18 06:45 Est GFR ( Amer) > 60 07/21/18 06:45 Est GFR (Non-Af Amer) > 60 07/21/18 06:45 Random Glucose 92 mg/dL (70-110) 07/21/18 06:45 Calcium 8.8 mg/dL (8.4-10.5) 07/21/18 06:45 Phosphorus 2.9 mg/dL (2.5-4.5) 07/21/18 06:45 Magnesium 1.6 mg/dL (1.7-2.2) L 07/21/18 06:45 Total Bilirubin 0.8 mg/dL (0.2-1.3) 07/21/18 06:45 Direct Bilirubin 3.9 mg/dL (0.0-0.4) H 07/19/18 16:00 AST 59 U/L (14-36) H D 07/21/18 06:45 ALT 212 U/L (7-56) H 07/21/18 06:45 Alkaline Phosphatase 157 U/L (38-126) H 07/21/18 06:45 Total Protein 6.1 g/dL (5.8-8.3) 07/21/18 06:45 Albumin 3.4 g/dL (3.0-4.8) 07/21/18 06:45 Globulin 2.7 gm/dL 07/21/18 06:45 Albumin/Globulin Ratio 1.3 (1.1-1.8) 07/21/18 06:45 Lipase 77560 U/L (23-300) H 07/19/18 13:05 Urine Color Yellow (YELLOW) 07/19/18 13:05 Urine Appearance Clear (CLEAR) 07/19/18 13:05 Urine pH 6.0 (4.7-8.0) 07/19/18 13:05 Ur Specific [place] 1.020 (1.005-1.035) 07/19/18 13:05 Urine Protein Negative mg/dL (<30 mg/dL) 07/19/18 13:05 Urine Glucose (UA) Negative mg/dL (NEGATIVE) 07/19/18 13:05 Urine Ketones Negative mg/dL (NEGATIVE) 07/19/18 13:05 Urine Blood Negative (NEGATIVE) 07/19/18 13:05 Urine Nitrate Negative (NEGATIVE) 07/19/18 13:05 Urine Bilirubin Large (NEGATIVE) H 07/19/18 13:05 Urine Urobilinogen 0.2 E.U./dL (<1 E.U./dL) 07/19/18 13:05 Ur Leukocyte Esterase Negative [place]/uL (NEGATIVE) 07/19/18 13:05 Urine HCG, Qual Negative (NEGATIVE) 07/20/18 00:39 Urine Opiates Screen Positive (NEGATIVE) H 07/20/18 00:39 Urine Methadone Screen Negative (NEGATIVE) 07/20/18 00:39 Ur Barbiturates Screen Negative (NEGATIVE) 07/20/18 00:39 Ur Phencyclidine Scrn Negative (NEGATIVE) 07/20/18 00:39 Ur Amphetamines Screen Positive (NEGATIVE) H 07/20/18 00:39 U Benzodiazepines Scrn Negative (NEGATIVE) 07/20/18 00:39 U Oth Cocaine Metabols Negative (NEGATIVE) 07/20/18 00:39 U Cannabinoids Screen Positive (NEGATIVE) H 07/20/18 00:39 - Hospital Course Hospital Course: Upon Admission: Pt is a 22 yo F with pmhx of alcoholic pancreatitis who presents to the ED for RUQ and epigastric abd pain x1 day. Pt states that she has had episodes of pain like this for the past year and was seen in this ED in May for a similar episode but was at the time. Pt states that today she began to have another bout of pain but this time the pain was unremitting and was associated with 4 bouts of non-bloody, non-billious emesis. Pt reports that the pain is currently rated at a 10/10 with radiation from the RUQ to the epigastric region. She reports that she was able to tolerate food yesterday but today is unable to tolerate PO intake and she has persistent nausea. She admits that this pain is something that she is familiar with but is just not improving over time. At this time she is denying fevers, chills, yellowing of eyes or skin, itching, chest pain, palpitations, SOB, cough, constipation, diarrhea, dysuria or hematuria. Pt does admit to RUQ and epigastric tenderness, nausea, vomiting and poor PO intake. Pt does admit to drinking a lot on Tuesday but does not remember how much she drank, she denies any other substance use. Hospital Course: Pt is being worked up for Gallstones. Pt had abd U/S done in ED which showed: multiple gallstones with out CBD dilation. Pt was also noted to have transaminitis and acute pancreatitis likely 2/2 gallstones. Pts lipase was elevated to 27,000s and the pt was placed NPO with aggressive IVF hydration. Pt started on 150cc of LR/hr. Per surgical team, pt was originally scheduled for OR the next day () but due to elevated lipase levels, pts operation is rescheduled for Tuesday. Pt states that she is hungry so she was advanced to a CLD. Pt tolerated the diet well and then pt was then advanced the next day to FLD. Per surgical team, plan continued to be surgery scheduled for Tuesday. Pt was going to be advanced to softs the third day (Tuesday) if she tolerated FLD, and then placed NPO@ midnight on tuesday night in anticipation of surgery tuesday. Pt eloped on Tuesday night. Discharge Exam - Additional Findings Additional findings: Unable to perform exam at the time of elopement since it was unexpected. Pt has capacity and has no difficulty in ambulation prior to elopement. Discharge Plan - Follow Up Plan Condition: STABLE Disposition: ELOPED FROM NURSING UNIT
== END 2018-07-21 20:35 | disposition left against medical advice (07) | DRG 204 ==
LOC: ED 12:05 → ERH 15:28 → 5RNO 18:43
PROVIDERS: ADMIT Internal Medicine; ATTEND Internal Medicine
DX: K85.10 Biliary acute pancreatitis without necrosis or infection (principal); K80.20 Calculus of gallbladder without cholecystitis without obstruction; D72.829 Elevated white blood cell count, unspecified; F10.10 Alcohol abuse, uncomplicated; F17.210 Nicotine dependence, cigarettes, uncomplicated; Z83.3 Family history of diabetes mellitus